=== PATIENT | female | born 2000 | race Caucasian/White ===

== ENCOUNTER 2019-12-15 17:52 | Emergency (ER) | payer OTHER ==
[~2019-12-15] VITALS: Ht 170.2 cm; Wt 74.0 kg
[2019-12-15 19:24] LABS: APPEARANCE, URINE CLEAR (CLEAR); BACTERIA, URINE AUTO NEGATIVE (NEGATIVE); BILIRUBIN, URINE AUTO NEGATIVE (NEGATIVE); BLOOD, URINE BLOOD NEGATIVE (NEGATIVE); COLOR, URINE YELLOW (YELLOW); GLUCOSE, URINE (UA) AUTO NEGATIVE (NEGATIVE); KETONE, URINE AUTO NEGATIVE (NEGATIVE); LEUKOCYTE ESTERASE, URINE AUTO NEGATIVE (NEGATIVE); MUCUS, URINE SMALL (NEGATIVE); NITRITE, URINE AUTO NEGATIVE (NEGATIVE); PROTEIN, URINE AUTO NEGATIVE (NEGATIVE); RBC, URINE AUTO 2 /HPF (0-3); SPECIFIC GRAVITY URINE AUTO 1.029 (1.002-1.035); SQUAMOUS EPITHELIAL CELL UR AU 2 /HPF (0-6); UROBILINOGEN, URINE AUTO 0.2 mg/dL (0.0-2.0); WBC, URINE AUTO 0 /HPF (0-3)
--- NOTE | 2019-12-15 19:31 | REPVR ---
PROCEDURE INFORMATION: Exam: US First Trimester, Transabdominal and US , Transvaginal Exam date and time: 12/15/2019 7:00 PM Age: 19 years old Clinical indication: complicated by abdominal or pelvic pain; Lower; First trimester; Gestational age or lmp: 9 weeks 1 day; ; Additional info: Cramps, light abd pain reports no vaginal bleeding TECHNIQUE: Imaging protocol: Real-time transabdominal obstetrical ultrasound of the maternal pelvis and a first trimester , less than 14 weeks 0 days, with image documentation. Transvaginal imaging was used for better evaluation of the fetus and adnexa. COMPARISON: No relevant prior studies available. FINDINGS: Gestation: Thickened endometrial echo complex measuring up to 13 mm with a small fluid collection in the fundus which may represent a small gestational sac with an average sac diameter of 2.9 mm. Embryonic/ heart rate: Not applicable BIOMETRY: Gestational age (AUA): 9 weeks 1 day based on LMP of 10/12/2019 versus approximately 4 weeks 5 days based on sac size measurement. MATERNAL: Uterus: Unremarkable. Cervix: Unremarkable. Right adnexa: Unremarkable. Left adnexa: Unremarkable. Intraperitoneal space: Trace fluid in the cul-de-sac. IMPRESSION: Possible small gestational sac in the uterine fundus. Follow-up evaluation recommended to document the presence of a pole and cardiac activity and to exclude ectopic or early failure depending upon clinical status. Correlation with beta HCG levels suggested as well. Electronically signed by: Jeffrey Paige On 12/15/2019 19:30:31 PM
[2019-12-15] MEDS ORDERED: LIDOCAINE 5% (LIDODERM) PATCH TD ONE (19:45)
[2019-12-15] MEDS ORDERED: ACETAMINOPHEN 500 MG TAB PO ONE (19:45)
[2019-12-15 19:52] LABS: BASO % 0.4 % (0.0-1.0); EOS # 0.1 10^3/uL (0.0-0.5); EOS % 0.6 % (0.0-3.0); HEMATOCRIT 40.2 % (36.0-47.0); HEMOGLOBIN 13.7 g/dl (12.0-15.5); LYMPH # 3.5 10^3/uL (1.5-5.0); LYMPH % 36.3 % (24.0-44.0); MEAN CORPUSCULAR HGB CONC 34.1 g/dl (32.0-36.5); MONO # 0.9 10^3/uL (0.0-0.8); MONO % 8.9 % (0.0-5.0); NEUTROPHILS # 5.1 10^3/uL (1.5-8.5); NEUTROPHILS % 53.5 % (36.0-66.0); PLATELET COUNT, AUTOMATED 360 10^3/uL (150-450); RED BLOOD COUNT 4.42 10^6/uL (4.00-5.40); WHITE BLOOD COUNT 9.6 10^3/uL (4.0-10.0)
[2019-12-15 20:55] VITALS: BP 111/54
[2019-12-16] MEDS ORDERED: **NOTE PATIENT COMMENT** MISC XX ONE (08:00)
== END 2019-12-15 20:58 | disposition home or self-care (01) ==
LOC: M ED 17:52
DX: O99.89 Other specified diseases and conditions complicating pregnancy, childbirth and the puerperium (principal); M54.5 Low back pain; O26.891 Other specified pregnancy related conditions, first trimester; R51 Headache; O99.331 Smoking (tobacco) complicating pregnancy, first trimester; Z3A.09 9 weeks gestation of pregnancy

== ENCOUNTER 2019-12-22 13:32 | Emergency (ER) | payer OTHER ==
[~2019-12-22] VITALS: Ht 167.6 cm; Wt 74.1 kg
[2019-12-22] MEDS ORDERED: PRENATAL VIT (13:51)
[2019-12-22 15:47] LABS: HEMATOCRIT 41.3 % (36.0-47.0); HEMOGLOBIN 13.9 g/dl (12.0-15.5); MEAN CORPUSCULAR HGB CONC 33.7 g/dl (32.0-36.5); PLATELET COUNT, AUTOMATED 333 10^3/uL (150-450); RED BLOOD COUNT 4.49 10^6/uL (4.00-5.40); WHITE BLOOD COUNT 9.1 10^3/uL (4.0-10.0)
[2019-12-22 16:42] LABS: BLOOD UREA NITROGEN 9 MG/DL (7-18); CALCIUM LEVEL 8.9 MG/DL (8.5-10.1); CARBON DIOXIDE LEVEL 28 MEQ/L (21-32); CHLORIDE LEVEL 108 MEQ/L (98-107); CREATININE FOR GFR 0.72 MG/DL (0.55-1.30); GLUCOSE, FASTING 74 MG/DL (70-100); HCG, SERUM QUANTITATIVE 19724 MIU/ML; SODIUM LEVEL 138 MEQ/L (136-145)
--- NOTE | 2019-12-22 18:12 | REPVR ---
PROCEDURE INFORMATION: Exam: US First Trimester, Transabdominal Exam date and time: 12/22/2019 5:25 PM Age: 19 years old Clinical indication: Lmp or gestational age (in weeks): 9; Other: Threatened ab; TECHNIQUE: Imaging protocol: Real-time transabdominal obstetrical ultrasound of the maternal pelvis and a first trimester , less than 14 weeks 0 days, with image documentation. COMPARISON: 1ST TRIMESTER US 12/15/2019 6:36 PM FINDINGS: Gestation: An intrauterine gestational sac can be seen on both the sagittal scan and the transverse scan. There is a yolk sac identified within the gestational sac. There is decidual reaction surrounding the intrauterine gestational sac. The gestational sac would be consistent 6 weeks 0 days. There is a small echogenic focus but no cardiac activity. This echogenic area could represent a pole but not well-defined. Considerations would include incomplete AB and demise at 6 weeks 0 days. A follow-up scan should be considered to determine cardiac activity develops within a pole. Previous ultrasound of 12/15/2019 demonstrated tiny hypoechoic area in the endometrium measuring 3 mm. Uterus: The uterus measures 7.5 cm in length by 4 cm in AP dimension by 4.6 cm in transverse dimension. Cervix: Unremarkable. Right adnexa: There is vascular flow of the right ovary with no evidence of torsion. The right ovary measures 2.7 cm in length by 1.6 cm in thickness and there are several small follicular type cysts. There is vascular flow of the left ovary with no evidence of torsion. The left ovary measures 3 cm in length by 2.4 cm in thickness. There are varices along the margins of the uterus. Intraperitoneal space: There is a small amount of free fluid within the lower cul-de-sac. Urinary bladder: There is a small amount of urine in the urinary bladder. IMPRESSION: 1. Normal appearing ovaries. 2. Intrauterine gestational sac which is increased in size since the previous ultrasound and approximately 6 weeks 0 days based on gestational sac measurements. There is a yolk sac identified. Small echogenic area demonstrates no cardiac activity. Considerations include incomplete , demise at 6 weeks. A follow-up scan might be considered to determine if there is development of a well-formed pole and cardiac activity. Electronically signed by: Gil Marshall On 12/22/2019 18:12:21 PM
[2019-12-22] MEDS ORDERED: ONDA-83 PO (18:20)
[2019-12-22 18:33] VITALS: BP 121/69
--- NOTE | 2019-12-30 09:39 | ECGEPIP ---
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
== END 2019-12-22 18:37 | disposition home or self-care (01) ==
LOC: M ED 13:32
DX: O26.51 Maternal hypotension syndrome, first trimester (principal); O20.0 Threatened abortion; Z3A.09 9 weeks gestation of pregnancy; Z79.899 Other long term (current) drug therapy

== ENCOUNTER 2019-12-28 10:37 | Day surgery (SDC) | payer OTHER ==
[~2019-12-28] VITALS: Ht 167.6 cm; Wt 73.0 kg
[~2019-12-28 10:37] MED LIST: BUPIVACAINE/EPIN 0.25% 30 ML VIAL As Ordered ONE; ONDA-83 PO; PRENATAL VIT; SILVER NITRATE APPLICATOR As Ordered ONE
[2019-12-28] MEDS ORDERED: ceFAZolin 1GM VIAL (J0690 PER 500MG) As Ordered ONE (11:05)
[2019-12-28 11:13] LABS: HEMATOCRIT 38.2 % (36.0-47.0); HEMOGLOBIN 13.4 g/dl (12.0-15.5); MEAN CORPUSCULAR HEMOGLOBIN 31.5 pg (27.0-33.0); MEAN CORPUSCULAR HGB CONC 35.1 g/dl (32.0-36.5); MEAN CORPUSCULAR VOLUME 89.9 fl (80.0-96.0); PLATELET COUNT, AUTOMATED 375 10^3/uL (150-450); RED BLOOD COUNT 4.25 10^6/uL (4.00-5.40); WHITE BLOOD COUNT 10.3 10^3/uL (4.0-10.0)
[2019-12-28 11:25] LABS: INR 1.09; PROTHROMBIN TIME 14.4 SECONDS (11.8-14.0)
[2019-12-28] MEDS ORDERED: MIDAZOLAM INJ 2MG/2ML VIAL (J2250 PER 1MG) As Ordered ONE (11:56)
[2019-12-28] MEDS ORDERED: dexameTHASONE 4 MG/ML 1ML VIAL (J1100 PER 1MG) As Ordered ONE (11:56)
[2019-12-28] MEDS ORDERED: propofoL 200 MG/20 ML VIAL As Ordered ONE (11:56)
[2019-12-28] MEDS ORDERED: fentaNYL 100 MCG/2 ML INJECTION (J3010) As Ordered ONE (11:56)
[2019-12-28] MEDS ORDERED: ACETAMINOPHEN 1000MG 100ML IV BTL (OFIRMEV) (J0131 PER 10MG) As Ordered ONE (11:56)
[2019-12-28] MEDS ORDERED: LIDOCAINE 2% 100MG/5ML SDV (FOR ANES.) As Ordered ONE (11:56)
[2019-12-28] MEDS ORDERED: ONDANSETRON 4MG/2ML VIAL As Ordered ONE (12:04)
[2019-12-28] MEDS ORDERED: OXYTOCIN INJ 10 UNITS/ML VIAL (J2590) As Ordered ONE (12:11)
[2019-12-28] MEDS ORDERED: ONDANSETRON 4MG/2ML VIAL IV PRN ×2 (12:45→13:00)
[2019-12-28] MEDS ORDERED: LR 1,000 ML IV SCH ×2 (12:45→13:00)
[2019-12-28] MEDS ORDERED: PERCOCET 5MG/325MG TAB PO PRN (12:45)
[2019-12-28] MEDS ORDERED: oxyCODONE 5MG TAB PO PRN (13:00)
[2019-12-28] MEDS ORDERED: fentaNYL 100 MCG/2 ML INJECTION (J3010) IV PRN (13:00)
[2019-12-28 14:00] VITALS: BP 129/57
--- NOTE | 2019-12-28 15:52 | ROOPDOC ---
[facility] Report Of Operation Report of Operation DATE OF PROCEDURE: 12/28/19 PREPROCEDURE DIAGNOSES: Missed at 6wks. POSTPROCEDURE DIAGNOSES: Missed at 6wks. PROCEDURE: Suction dilation and Currett[place]. SURGEON: Jeanna Amaral MD RESEARCH DEVELOPMENT DIRECTOR: None ANESTHESIA: MAC. ESTIMATED BLOOD LOSS: Approximately 100 mL. IV Fluids: 700mL LR Urine Output: Not Recorded COMPLICATIONS: None. REMARKS: Anteverted normal size uterus. Small amount of POC looking inside ut erus. Minimal bleeding. DESCRIPTION OF PROCEDURE: Patient was brought back to the operating room and placed under anesthesia. Then she was placed in the dorsolithotomy position and draped and prepped in the usual sterile technique. Exam was performed with the above findings. Time out performed. Mesa speculum placed. Single tooth tenaculum placed on the anterior lip of the cervix and cervix was dilated easily without difficulty to a curved 17Pratt dilator. The suction machine was assembled with a size 7 currette and adequate suction confirmed. Suction was placed intrauterine without difficulty and suction performed until gritty sensation throughout all quadrants. When suction was removed there was minimal bleeding. Instruments were removed and tenaculum hemostasis via pressure from sponge stick. Lap, instrument count was correct x2. Patient was in stable condition to the recovery room. Jeanna Amaral MD Dec 28, 2019 15:52
== END 2019-12-28 14:05 | disposition home or self-care (01) ==
LOC: M SDC 10:37
PROVIDERS: ATTEND Obstetrics & Gynecology
DX: O02.1 Missed abortion (principal)
CPT/HCPCS: 36415; 59820; 84702; 85027; 85610; 86850; 86900; 86901; 88305; J0131; J1100; J2250; J2405; J2590; J3010; U0002

== ENCOUNTER 2020-02-13 14:08 | Emergency (ER) | payer OTHER ==
[~2020-02-13] VITALS: Ht 167.6 cm; Wt 76.5 kg
[~2020-02-13 14:08] MED LIST changes: -BUPIVACAINE/EPIN 0.25% 30 ML VIAL As Ordered ONE; -SILVER NITRATE APPLICATOR As Ordered ONE
[2020-02-13 15:06] LABS: HEMATOCRIT 40.1 % (36.0-47.0); HEMOGLOBIN 13.6 g/dl (12.0-15.5); MEAN CORPUSCULAR HEMOGLOBIN 30.9 pg (27.0-33.0); MEAN CORPUSCULAR HGB CONC 33.9 g/dl (32.0-36.5); MEAN CORPUSCULAR VOLUME 91.1 fl (80.0-96.0); PLATELET COUNT, AUTOMATED 375 10^3/uL (150-450); WHITE BLOOD COUNT 10.3 10^3/uL (4.0-10.0)
[2020-02-13 15:23] LABS: HCG, SERUM QUALITATIVE POSITIVE (NEGATIVE)
[2020-02-13] MEDS ORDERED: cefTRIAXone SOD 250MG VIAL (J0696 PER 250MG) IM ONE (16:15)
[2020-02-13] MEDS ORDERED: LIDOCAINE 1% SDV 5ML VIAL DILUENT ONE (16:15)
[2020-02-13] MEDS ORDERED: AZITHROMYCIN 250MG TABLET PO ONE (16:15)
[2020-02-13 16:35] VITALS: BP 111/66
[2020-02-13 16:50] LABS: CHLAMYDIA DNA AMPLIFICATION NEGATIVE (NEGATIVE); GC DNA AMPLIFICATION NEGATIVE (NEGATIVE)
== END 2020-02-13 16:37 | disposition home or self-care (01) ==
LOC: M ED 14:08
DX: O20.0 Threatened abortion (principal); N89.8 Other specified noninflammatory disorders of vagina; O26.899 Other specified pregnancy related conditions, unspecified trimester; R10.2 Pelvic and perineal pain; Z3A.00 Weeks of gestation of pregnancy not specified; Z79.899 Other long term (current) drug therapy
CPT/HCPCS: 81001; 84702; 84703; 85027; 86901; 87210; 87661; 96372; 99283; J0696

== ENCOUNTER 2020-05-15 09:23 | Emergency (ER) | payer OTHER ==
[~2020-05-15] VITALS: Ht 167.6 cm; Wt 77.2 kg
--- OUTSIDE RECORDS SUMMARY | 2020-05-15 09:34 | CCD ---
Author Author [facility] Address Unknown Phone Unavailable Support Name Relationship Address Phone JELLY MARINELLI Next Of Kin [address] [place], [place] [id number] DOOR DASH Next Of Kin [address] [place] [address] UE Next Of Kin Unknown Unavailable ROXY MARINELLI Next Of Kin [address] [place], [place] [id number] Re-disclosure Warning The records that you are about to access may contain information from federally-assisted alcohol or drug abuse programs. If such information is present, then the following federally mandated warning applies: This information has been disclosed to you from records protected by federal confidentiality rules (42 CFR part 2). The federal rules prohibit you from making any further disclosure of this information unless further disclosure is expressly permitted by the written consent of the person to whom it pertains or as otherwise permitted by 42 CFR part 2. A general authorization for the release of medical or other information is NOT sufficient for this purpose. The Federal rules restrict any use of the information to criminally investigate or prosecute any alcohol or drug abuse patient.The records that you are about to access may contain highly sensitive health information, the redisclosure of which is protected by Article 27-F of the [facility] Public Health law. If you continue you may have access to information: Regarding HIV / AIDS; Provided by facilities licensed or operated by the [facility] Office of Mental Health; or Provided by the [facility] Office for People With Developmental Disabilities. If such information is present, then the following [facility] mandated warning applies: This information has been disclosed to you from confidential records which are protected by state law. State law prohibits you from making any further disclosure of this information without the specific written consent of the person to whom it pertains, or as otherwise permitted by law. Any unauthorized further disclosure in violation of state law may result in a fine or halfway sentence or both. A general authorization for the release of medical or other information is NOT sufficient authorization for further disc losure. Insurance Providers Payer name Policy type / Coverage type Policy ID Covered constitution party ID Covered constitution party's relationship to millan Policy Millan Plan Information [facility] [id number] P [id number] [facility] [id number] [facility] [id number] [facility] [id number] [facility] [id number] [facility] [id number] [facility] [id number] [facility] [id number]
[2020-05-15] MEDS ORDERED: CYCLOBENZAPRINE 10MG TABLET PO ONE (10:00)
[2020-05-15] MEDS ORDERED: KETOROLAC TROMETHAMINE 10 MG TAB PO ONE (10:00)
--- OUTSIDE RECORDS SUMMARY | 2020-05-15 10:39 | CCD ---
Author Author [facility] Address Unknown Phone Unavailable Support Name Relationship Address Phone JELLY MARINELLI Next Of Kin [address] [place], [place] [id number] DOOR DASH Next Of Kin [address] [place] [address] UE Next Of Kin Unknown Unavailable ROXY MARINELLI Next Of Kin [address] [place], [place] [phone] Re-disclosure Warning The records that you are [...] is protected by Article 27-F of the [facility] Public Health law. If you continue you may have access to information: Regarding HIV / AIDS; Provided by facilities licensed or operated by the [facility] Office of Mental Health; or Provided by the [facility] Office for People With Developmental Disabilities. If such information is present, then the following [facility] mandated warning applies: This information has been [...] law may result in a fine or fdc sentence or both. A general authorization for the release of medical or other information is NOT sufficient authorization for further disc losure. Insurance Providers Payer name Policy type / Coverage type Policy ID Covered libertarian ID Covered libertarian's relationship to millan Policy Millan Plan Information [facility] [id number] P [id number] [facility] [id number] [facility] [id number] [facility] [id number] [facility] [id number] [facility] [id number] [facility] [id number] [facility] [id number]
[2020-05-15] MEDS ORDERED: CYCL5TAB PO (11:05)
[2020-05-15] MEDS ORDERED: KETO10TAB PO (11:05)
[2020-05-15 11:14] VITALS: BP 117/73
== END 2020-05-15 11:17 | disposition home or self-care (01) ==
LOC: M ED 09:23
DX: M62.838 Other muscle spasm (principal)

== ENCOUNTER → 2020-06-29 | Outpatient (REF) | payer OTHER ==
[~2020-06-29] MED LIST changes: +CYCL5TAB PO; +KETO10TAB PO
[2020-06-29 14:01] LABS: HEMATOCRIT 40.8 % (36.0-47.0); HEMOGLOBIN 13.9 g/dl (12.0-15.5); MEAN CORPUSCULAR HEMOGLOBIN 31.6 pg (27.0-33.0); MEAN CORPUSCULAR HGB CONC 34.1 g/dl (32.0-36.5); MEAN CORPUSCULAR VOLUME 92.7 fl (80.0-96.0); PLATELET COUNT, AUTOMATED 324 10^3/uL (150-450); WHITE BLOOD COUNT 8.8 10^3/uL (4.0-10.0)
[2020-06-29 15:15] LABS: HEPATITIS C VIRUS ABY INDEX < 0.0 INDEX (<0.8); HIV 1&2 SCREEN CENTAUR NEGATIVE (NEGATIVE)
== END ==
LOC: M PLALAB 10:48
PROVIDERS: ATTEND Obstetrics & Gynecology
DX: Z34.01 Encounter for supervision of normal first pregnancy, first trimester (principal); Z36.89 Encounter for other specified antenatal screening
CPT/HCPCS: 36415; 85027; 86762; 86780; 86803; 86850; 86900; 86901; 87086; 87340; 87389; 87490; 87590; G0463

== ENCOUNTER 2020-10-22 20:23 | Inpatient (IN) | payer OTHER ==
[~2020-10-22] VITALS: Ht 167.6 cm; Wt 68.7 kg
[2020-10-22 20:42] VITALS: BP 145/63
[2020-10-22] MEDS ORDERED: LR 1,000 ML IV ONE (21:05)
--- NOTE | 2020-10-22 21:14 | IPNPDOC ---
Text Note Date of Service The patient was seen on 10/22/20. NOTE Subjective: Nikia is a 20-year-old female who is a at 23 weeks gestation with an DINORAH of 02/18/21. She initiated care in her first trimester of with [facility]. She was seen for only 2 visits with her last visit being in July. She reports she was back home for the last 3 months due to a family emergency. She states she had some care back home. Nikia states she had symptoms of a UTI on Thursday and took Azo and symptoms got better. Today her pain returned but worse. Reports it to be a 7/10 currently. Pain is constant and not relieved with a shower or Tylenol, which she took her last dose at 1700. Low back pain that wraps down and around her sides. She doesn't believe she has had a fever. She reports active movement. She denies contractions but reports some cramping but not sure if it is from her back. She denies leaking of fluid or vaginal bleeding. Objective: FHR: 160, moderate variability, positive accelerations, no decelerations. Appropriate for gestation. Darling: no contractions General: She is alert but appears to be uncomfortable. She is grimacing and moving in the bed. Respiratory: respiratory rate increased, no use of accessory muscles. Abdomen: gravid, fundus 2 finger breaths above umbilicus, not tender with palpation Musculoskeletal:+CVA tenderness bilaterally VS, labs and ultrasound: see below At 0130 patient had a fever of 101.2 Assessment: IUP at 23 weeks gestation; pyelonephritis, fever Plan: -Urine clean catch for culture and urinalysis obtained -Start IV -CBC ordered stat -Bolus 1 liter of LR then run at 125 cc/hr -Renal sono ordered -IV Morphine 4 mg ordered -Percocet ordered -FHR every 4 hours -Rochephin IV ordered once every 24 hours due to WBC of 16. -Dr. Castro aware of patient being in department he agrees with plan of care. -Continue to monitor -Tylenol for fever Pain improved with IV fluids, Rocephin and Morphine VS,Fishbone, I+O VS, Fishbone, I+O Vital Signs Label Value Date Time Patient Temperature 98.4 degrees F 10/22/202041 Temperature Source Temporal 10/22/202041 Pulse 111 10/22/202041 Respiratory Rate 18 bpm 10/22/202041 Blood Pressure Assessment 145/63 (90) 10/22/202041 Source Automatic Cuff (NIBP) Bedside Pulse Oximetry 98 % 10/22/202041 Item Value Date Time White Blood Count 16.1 10^3/uL H 10/22/202107 Red Blood Count 3.58 10^6/uL L 10/22/202107 Hemoglobin 11.6 g/dl L 10/22/202107 Hematocrit 33.5 % L 10/22/202107 Mean Corpuscular Volume 93.6 fl 10/22/202107 Mean Corpuscular Hemoglobin 32.4 pg 10/22/202107 Mean Corpuscular Hemoglobin Concent 34.6 g/dl 10/22/202107 Red Cell Distribution Width 12.7 % 10/22/202107 Platelet Count 294 10^3/uL 10/22/202107 Item Value Date Time Urine Color YELLOW 10/22/202119 Urine Appearance CLOUDY H 10/22/202119 Urine pH 7.0 UNITS 10/22/202119 Urine Specific [place] 1.009 10/22/202119 Urine Protein NEGATIVE mg/dL 10/22/202119 Urine Glucose (Auto)(UA) NEGATIVE mg/dL 10/22/202119 Urine Ketones (Auto) NEGATIVE mg/dL 10/22/202119 Urine Blood NEGATIVE 10/22/202119 Urine Nitrite NEGATIVE 10/22/202119 Urine Bilirubin NEGATIVE 10/22/202119 Urine Urobilinogen 0.2 mg/dL 10/22/202119 Urine Leukocyte Esterase (Auto) 3+ H 10/22/202119 Urine WBC (Auto) 109 /HPF H 10/22/202119 Urine RBC (Auto) 6 /HPF H 10/22/202119 Urine Hyaline Casts (Auto) 0 /LPF 10/22/202119 Urine Bacteria (Auto) 1+ H 10/22/202119 Urine Squamous Epithelial Cells 1 /HPF 10/22/202119 NAME: HOWARD MARINELLI DATE OF : 2000 BUSINESS NUMBER: [id number] AGE: 20 SEX: F REPORT #: [id number] ROOM: [facility] TECHNOLOGIST: DGUNN DOCTOR: NINA DOAN CNM Ordered for Date&Time: 10/22/202132 cc: [~ rep ct ivnm] Service Date&Time: 10/22/202301 EXAMINATION REQUESTED: RENAL US REASON FOR PATIENT VISIT: ABD/BACK PAIN REASON FOR EXAMINATION: severe bilateral back/flank pain PROCEDURE INFORMATION: Exam: US Retroperitoneal Limited, Kidneys Exam date and time: 10/22/2020 11:02 PM Age: 20 years old Clinical indication: Abdominal pain; Flank; Bilateral; ; Additional info: Severe bilateral back/flank pain TECHNIQUE: Imaging protocol: Real-time ultrasound of the retroperitoneum with image documentation. Examination was focused on the kidneys. COMPARISON: 1ST TRIMESTER US 12/22/2019 5:04 PM FINDINGS: Right kidney: The right kidney and measures 10.7 cm in length. There is no renal cortical thinning. The renal cortical echogenicity is within normal limits. No renal lesion is seen. There is mild right hydronephrosis. No obvious stones are seen in the renal collecting system. The resistive index in the right kidney is within normal limits and measures 0.62. Left kidney: The left kidney is normal in appearance and measures 10.8 cm in length. There is no renal cortical thinning. The renal cortical echogenicity is within normal limits. No renal lesion is seen. There is no hydronephrosis. No obvious stones are seen in the renal collecting system. The resistive index in the left kidney is within normal limits and measures 0.59. Bladder: The urinary bladder was not distended for optimal evaluation. Uterus: There is a single live intrauterine in cephalic presentation with a heart rate of 160 bpm. IMPRESSION: Mild right hydronephrosis. Electronically signed by: Deep Mosley On 10/23/2020 01:12:02 AM NINA DOAN CNM Oct 22, 2020 21:14
[2020-10-22] MEDS ORDERED: ACET325C5 PO ×2 (21:20→21:23)
[2020-10-22] MEDS ORDERED: MORPHINE 4 MG/ML 1ML VIAL/SYRINGE (J2270) IV PRN (21:35)
[2020-10-22 21:41] LABS: HEMATOCRIT 33.5 % (36.0-47.0); HEMOGLOBIN 11.6 g/dl (12.0-15.5); MEAN CORPUSCULAR HEMOGLOBIN 32.4 pg (27.0-33.0); MEAN CORPUSCULAR HGB CONC 34.6 g/dl (32.0-36.5); MEAN CORPUSCULAR VOLUME 93.6 fl (80.0-96.0); PLATELET COUNT, AUTOMATED 294 10^3/uL (150-450); RED BLOOD COUNT 3.58 10^6/uL (4.00-5.40); WHITE BLOOD COUNT 16.1 10^3/uL (4.0-10.0)
[2020-10-22 21:44] LABS: APPEARANCE, URINE CLOUDY (CLEAR); BACTERIA, URINE AUTO 1+ (NEGATIVE); BILIRUBIN, URINE AUTO NEGATIVE (NEGATIVE); BLOOD, URINE BLOOD NEGATIVE (NEGATIVE); COLOR, URINE YELLOW (YELLOW); GLUCOSE, URINE (UA) AUTO NEGATIVE (NEGATIVE); KETONE, URINE AUTO NEGATIVE (NEGATIVE); LEUKOCYTE ESTERASE, URINE AUTO 3+ (NEGATIVE); NITRITE, URINE AUTO NEGATIVE (NEGATIVE); PROTEIN, URINE AUTO NEGATIVE (NEGATIVE); RBC, URINE AUTO 6 /HPF (0-3); SPECIFIC GRAVITY URINE AUTO 1.009 (1.002-1.035); SQUAMOUS EPITHELIAL CELL UR AU 1 /HPF (0-6); UROBILINOGEN, URINE AUTO 0.2 mg/dL (0.0-2.0); WBC, URINE AUTO 109 /HPF (0-3)
[2020-10-22 21:51] VITALS: BP 116/64
[2020-10-22] MEDS: cefTRIAXone SOD 1 GM in D5W MINI-BAG PLUS 50 ML IV SCH (22:08)
[2020-10-22 23:07] VITALS: BP 107/55
[2020-10-22 23:56] VITALS: BP 94/50
[2020-10-22] MEDS: LR 1,000 ML IV SCH (23:57)
[2020-10-23] VITALS (7 sets, daily range): BP systolic 83–129; BP diastolic 43–80
--- NOTE | 2020-10-23 01:12 | REPVR ---
PROCEDURE INFORMATION: Exam: US Retroperitoneal Limited, Kidneys Exam date and time: 10/22/2020 11:02 PM Age: 20 years old Clinical indication: Abdominal pain; Flank; Bilateral; ; Additional info: Severe bilateral back/flank pain TECHNIQUE: Imaging protocol: Real-time ultrasound of the retroperitoneum with image documentation. Examination was focused on the kidneys. COMPARISON: 1ST TRIMESTER US 12/22/2019 5:04 PM FINDINGS: Right kidney: The right kidney and measures 10.7 cm in length. There is no renal cortical thinning. The renal cortical echogenicity is within normal limits. No renal lesion is seen. There is mild right hydronephrosis. No obvious stones are seen in the renal collecting system. The resistive index in the right kidney is within normal limits and measures 0.62. Left kidney: The left kidney is normal in appearance and measures 10.8 cm in length. There is no renal cortical thinning. The renal cortical echogenicity is within normal limits. No renal lesion is seen. There is no hydronephrosis. No obvious stones are seen in the renal collecting system. The resistive index in the left kidney is within normal limits and measures 0.59. Bladder: The urinary bladder was not distended for optimal evaluation. Uterus: There is a single live intrauterine in cephalic presentation with a heart rate of 160 bpm. IMPRESSION: Mild right hydronephrosis. Electronically signed by: Deep Mosley On 10/23/2020 01:12:02 AM
[2020-10-23] MEDS ORDERED: ACETAMINOPHEN 500 MG TAB PO PRN (01:35)
--- NOTE | 2020-10-23 01:45 | IPNPDOC ---
Text Note Date of Service The patient was seen on 10/23/20. NOTE Patient was requesting to go home because her has to work in the [employer]. Reviewed diagnosis and importance of staying to being monitored. Patient wanted to know if she could go home and come back for IV antibiotics. Reviewed that this is not an option. Patient currently has a fever. Reviewed complications of diagnosis including but not limited to: maternal , p rolonged fever affecting fetus, , ARDS, sepsis, pain, complications including CP. Reviewed with patient that I will not discharge her to home she would have to leave against medical advise. Patient wanted to call her to discuss. The potential complications were again reiterated to patient and need to be monitored while she is here. VS,Rosalie, I+O VS, Rosalie, I+O Laboratory Tests 10/22/20 21:08 Vital Signs Date Time Temp Pulse Resp B/P (MAP) Pulse Ox O2 Delivery O2 Flow Rate FiO2 10/22/20 23:56 97.9 93 94/50 (65) 10/22/20 23:07 16 10/22/20 21:50 Room Air 10/22/20 20:42 98 I&O- Last 24 Hours up to 6 AM 10/23/20 06:00 Intake Total 50 ml Balance 50 ml NINA DOAN CNM Oct 23, 2020 01:45
[2020-10-23] MEDS: LR 1,000 ML IV SCH ×3 (05:35→21:05)
[2020-10-23] MEDS: PERCOCET 5MG/325MG TAB PO PRN ×3 (08:13→21:05)
[2020-10-23] MEDS: cefTRIAXone SOD 1 GM in D5W MINI-BAG PLUS 50 ML IV SCH (22:21)
[2020-10-24 02:12] VITALS: BP 86/40
--- NOTE | 2020-10-24 04:46 | IPNPDOC ---
Text Note Date of Service The patient was seen on 10/24/20. NOTE S: Sleeping comfortably at present. Still gets back pain intermittently. O: AVSS NAD Abd: NT, gravid FHT:+ + right CVA tenderness, mild A/P 20 yo at 23 3/7 weeks with pyelonephritis Continue Ceftriaxone Labs for today Urine culture pending overall improved in both pain and fever curve VS,Fishbone, I+O VS, Fishbone, I+O Vital Signs Date Time Temp Pulse Resp B/P (MAP) Pulse Ox O2 Delivery O2 Flow Rate FiO2 10/24/20 02:12 98.1 80 16 86/40 (55) 10/23/20 22:13 98 Room Air I&O- Last 24 Hours up to 6 AM 10/24/20 06:00 Intake Total 2500 ml Output Total 800 ml Balance 1700 ml COLLIN DURAN MD Oct 24, 2020 04:46
[2020-10-24 06:12] VITALS: BP 92/43
[2020-10-24] MEDS: LR 1,000 ML IV SCH (06:24)
[2020-10-24 07:14] LABS: BASO % 0.2 % (0.0-1.0); EOS # 0.1 10^3/uL (0.0-0.5); EOS % 0.7 % (0.0-3.0); LYMPH # 2.8 10^3/uL (1.5-5.0); MEAN CORPUSCULAR HEMOGLOBIN 31.9 pg (27.0-33.0); MEAN CORPUSCULAR HGB CONC 33.6 g/dl (32.0-36.5); MEAN CORPUSCULAR VOLUME 94.9 fl (80.0-96.0); MONO # 1.6 10^3/uL (0.0-0.8); MONO % 13.3 % (2.0-8.0); NEUTROPHILS # 7.6 10^3/uL (1.5-8.5); NEUTROPHILS % 62.4 % (36.0-66.0); PLATELET COUNT, AUTOMATED 245 10^3/uL (150-450); RED BLOOD COUNT 2.95 10^6/uL (4.00-5.40); WHITE BLOOD COUNT 12.2 10^3/uL (4.0-10.0)
[2020-10-24 07:36] LABS: BLOOD UREA NITROGEN 4 MG/DL (7-18); CALCIUM LEVEL 7.6 MG/DL (8.5-10.1); CARBON DIOXIDE LEVEL 26 MEQ/L (21-32); CHLORIDE LEVEL 109 MEQ/L (98-107); CREATININE FOR GFR 0.42 MG/DL (0.55-1.30); GLOMERULAR FILTRATION RATE > 60.0 (>60); GLUCOSE, FASTING 73 MG/DL (70-100); POTASSIUM SERUM 3.7 MEQ/L (3.5-5.1); SODIUM LEVEL 139 MEQ/L (136-145)
[2020-10-24 07:43] LABS: HEMOGLOBIN 9.4 g/dl (12.0-15.5)
[2020-10-24 10:00] VITALS: BP 97/52
[2020-10-24 14:00] VITALS: BP 100/55
--- NOTE | 2020-10-25 15:40 | DSES ---
DISCHARGE SUMMARY DATE OF ADMISSION: 10/22/2020 DATE OF DISCHARGE: 10/24/2020 HISTORY OF PRESENT ILLNESS: Brad is a 20-year-old female 4, para 1-0-2-1, who presented to labor and delivery at 23 plus weeks gestation with an EDC of 02/18/2021. She had complained of symptoms of a urinary tract infection about three or four days prior to her presentation, when she took an [id number] remedy and her symptoms got better. On 10/22, her pain had returned, but much worse. She was subsequently diagnosed with pyelonephritis. Her admission CBC with a white count of 16.1. The white count was repeated today and her white count is 12.2. She has received two doses of Rocephin and has been afebrile for greater than 24 hours. She is tolerating p.o. fluids and a regular diet. She denies any current pain at this time and has not required any antipyretics for her temperature. heart rate has been appropriate for gestational age by Doppler. She has had no contractions. No vaginal bleeding. No leakage of fluid. The fetus has been active. DISCHARGE PLAN: Discharge the patient to home. She is going to continue Keflex 500 mg p.o. q. 6 hours x10 days. She is to have a follow-up appointment in approximately two weeks at [facility]. Of note, she did initiate her care at [facility], [place] of state, and has since returned recently and will be reinitiating her care in the office. I did review risks, benefits, and alternatives with the patient. Her questions have been answered. She does desire discharge home today. I did review signs and symptoms of labor, movement, danger signs to report, as well as access to care. Edited: syed 10/25/2020 1558 MTDD
== END 2020-10-24 16:25 | disposition home or self-care (01) | DRG 690 ==
LOC: M LDO 20:23 → M OBS 10-23 02:42 → M LDO 10-24 05:49 → M OBS 10-24 05:50
PROVIDERS: ADMIT Advanced Practice Midwife; ATTEND Advanced Practice Midwife
DX: N10 Acute pyelonephritis (principal); R50.9 Fever, unspecified

== ENCOUNTER 2020-11-18 23:05 | Emergency (ER) | payer OTHER ==
[~2020-11-18] VITALS: Ht 167.6 cm; Wt 68.2 kg
[~2020-11-18 23:05] MED LIST changes: +ACET325C5 PO
[2020-11-19 00:16] LABS: HEMATOCRIT 35.1 % (36.0-47.0); HEMOGLOBIN 11.9 g/dl (12.0-15.5); MEAN CORPUSCULAR HEMOGLOBIN 31.6 pg (27.0-33.0); MEAN CORPUSCULAR HGB CONC 33.9 g/dl (32.0-36.5); MEAN CORPUSCULAR VOLUME 93.4 fl (80.0-96.0); PLATELET COUNT, AUTOMATED 296 10^3/uL (150-450); RED BLOOD COUNT 3.76 10^6/uL (4.00-5.40); WHITE BLOOD COUNT 15.8 10^3/uL (4.0-10.0)
[2020-11-19 00:35] LABS: AMPHETAMINES LEVEL URINE NEGATIVE (NEGATIVE); BARBITURATES URINE NEGATIVE (NEGATIVE); BENZODIAZEPINES URINE NEGATIVE (NEGATIVE); CANNABINOIDS URINE NEGATIVE (NEGATIVE); COCAINE METABOLITE URINE NEGATIVE (NEGATIVE); METHADONE URINE NEGATIVE (NEGATIVE); OPIATES URINE NEGATIVE (NEGATIVE); PHENCYCLIDINE URINE NEGATIVE (NEGATIVE)
[2020-11-19 01:11] LABS: ACETAMINOPHEN LEVEL < 2.0 UG/ML (10.0-30.0); ALBUMIN 3.1 GM/DL (3.2-5.2); ALT/SGPT 12 U/L (12-78); BILIRUBIN,DIRECT < 0.1 MG/DL (0.0-0.2); BILIRUBIN,TOTAL 0.3 MG/DL (0.2-1.0); BLOOD UREA NITROGEN 7 MG/DL (7-18); CALCIUM LEVEL 7.9 MG/DL (8.5-10.1); CARBON DIOXIDE LEVEL 25 MEQ/L (21-32); CHLORIDE LEVEL 108 MEQ/L (98-107); CREATININE FOR GFR 0.55 MG/DL (0.55-1.30); GLOMERULAR FILTRATION RATE > 60.0 (>60); GLUCOSE, FASTING 80 MG/DL (70-100); POTASSIUM SERUM 3.6 MEQ/L (3.5-5.1); SALICYLATE LEVEL < 1.7 MG/DL (5.0-30.0); SODIUM LEVEL 138 MEQ/L (136-145); TOTAL PROTEIN 6.3 GM/DL (6.4-8.2)
[2020-11-19 01:12] LABS: ETHYL ALCOHOL (ETHANOL) < 0.003 % (0.000-0.010)
[2020-11-19] MEDS ORDERED: diphenhydrAMINE 50MG CAP PO ONE (02:00)
[2020-11-19 02:14] VITALS: BP 109/64
== END 2020-11-19 02:17 | disposition home or self-care (01) ==
LOC: M ED 23:05
DX: F32.9 Major depressive disorder, single episode, unspecified (principal); X78.9XXA Intentional self-harm by unspecified sharp object, initial encounter; F41.9 Anxiety disorder, unspecified; Z79.899 Other long term (current) drug therapy

== ENCOUNTER → 2020-11-22 | Outpatient (REF) | payer OTHER ==
[~2020-11-22] MED LIST changes: +PRENTAB9 PO
== END ==
LOC: M SFHCWAGY 16:56
PROVIDERS: ATTEND Advanced Practice Midwife
DX: Z87.59 Personal history of other complications of pregnancy, childbirth and the puerperium (principal)
CPT/HCPCS: 87086; G0463

== ENCOUNTER → 2020-11-26 | Outpatient (CLI) | payer OTHER ==
[~2020-11-26] MED LIST changes: -PRENTAB9 PO
[2020-11-26 14:16] LABS: HEMOGLOBIN 12.1 g/dl (12.0-15.5); MEAN CORPUSCULAR HEMOGLOBIN 31.9 pg (27.0-33.0); MEAN CORPUSCULAR HGB CONC 33.6 g/dl (32.0-36.5); PLATELET COUNT, AUTOMATED 318 10^3/uL (150-450); RED BLOOD COUNT 3.79 10^6/uL (4.00-5.40); WHITE BLOOD COUNT 11.1 10^3/uL (4.0-10.0)
[2020-11-26 14:31] LABS: GLUCOSE CHALLENGE TEST 1 HOUR 93 MG/DL (LESS THAN 140)
[2020-11-26 15:20] LABS: HEPATITIS C VIRUS ABY INDEX 0.1 INDEX (<0.8)
[2020-11-26 15:21] LABS: HIV 1&2 SCREEN CENTAUR NEGATIVE (NEGATIVE)
== END ==
LOC: M PLALAB 09:18
PROVIDERS: ATTEND Advanced Practice Midwife
DX: O99.342 Other mental disorders complicating pregnancy, second trimester (principal); Z3A.00 Weeks of gestation of pregnancy not specified; Z87.59 Personal history of other complications of pregnancy, childbirth and the puerperium

== ENCOUNTER → 2020-12-10 | Outpatient (CLI) | payer OTHER ==
--- NOTE | 2020-12-11 10:35 | REP ---
INDICATION: ANATOMY COMPARISON: None. TECHNIQUE: Transabdominal obstetrical ultrasound with color Doppler evaluation. FINDINGS: Exam is limited due to advanced age. Examination demonstrates a single live intrauterine in cephalic presentation. motion is identified by technologist. Placenta is noted anterior and grade 1 without evidence for placenta previa or abruption. Amniotic fluid volume is normal. Cervix measures 3.5 cm in length and appears closed.. Selected gestational age: 30 weeks 0 days with DINORAH 02/18/2021. Gestational age by current measurements 30 weeks 3 days with DINORAH 02/15/2021. FHR equals 129 beats per minute. JONE: 20.4 cm Estimated weight 1553 grams (49thpercentile). Anatomical assessment demonstrates normal structures including cranium, choroid plexus, cavum, facial features, lungs, four-chamber heart/ventricular outflow tracts, diaphragm, stomach, cord insertion/three-vessel cord, kidneys/bladder, spine, and extremities. IMPRESSION: Single live advanced gestation in cephalic presentation. No obvious abnormalities are identified. Estimated weight is normal. Evaluation of the cerebellum/posterior fossa and cisterna magna limited due to advanced age. <Electronically signed by Alin Clark > 12/11/20 1032
== END ==
LOC: M WHC 10:30
PROVIDERS: ATTEND Advanced Practice Midwife
DX: O99.343 Other mental disorders complicating pregnancy, third trimester (principal); Z3A.30 30 weeks gestation of pregnancy

== ENCOUNTER 2020-12-26 15:24 | Outpatient (CLI) | payer OTHER ==
[~2020-12-26] VITALS: Ht 167.6 cm; Wt 68.2 kg
[2020-12-26 15:44] VITALS: BP 127/67
[2020-12-26] MEDS ORDERED: PRENTAB9 PO (15:46)
[2020-12-26] MEDS ORDERED: HOME MED LIST COMPLETE! XX SCH (15:50)
[2020-12-26 16:38] VITALS: BP 120/68
--- NOTE | 2020-12-26 17:33 | IPN ---
PROGRESS NOTE DATE: 12/26/2020 SUBJECTIVE: Brad is a 20-year-old 4, para 1-0-2-1 and 32-2/7 weeks gestation with an EDC of 02/18/2021 based on first trimester ultrasound. She presents to labor and delivery today with a report of yellow discharge leaking, some pelvic pain, as well as decreased movement. Jeaneth denies vaginal bleeding. She does report that the fetus has started to move since arrival to labor and delivery. Her care was initiated at [facility] in the first trimester. She did go three months without care as she reports that she returned to her home state. She does state that she did have some care there. She returned to the [place] in November. Her care was complicated by pyelonephritis at 23 weeks, borderline personality disorder, anxiety, depression, and HSV-II. OBSTETRIC LABS: Blood type is A+. Antibody screen is negative. Syphilis nonreactive. Gonorrhea and chlamydia negative. Hepatitis B surface antigen negative. Hepatitis C antibody nonreactive. HIV negative. Rubella immune. Urine culture no growth. Gestational diabetic screening normal at 93. GBS is unknown at this time. PAST MEDICAL HISTORY: Borderline personality disorder, anxiety and depression, pyelonephritis during this . PAST SURGICAL HISTORY: D&C in 2019. FAMILY HISTORY: Noncontributory. 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 She is a nonsmoker. Denies alcohol and drug use. She does have a history of chlamydia and HSV-II. ALLERGIES: No known drug allergies. CURRENT MEDICATIONS: vitamin. OBJECTIVE: Vital signs: Temperature 98, pulse 94, respirations 18, blood pressure 127/67. General: She is alert and oriented times three. She does not appear in any discomfort. The heart rate is 130 with moderate variability, positive accelerations, negative decelerations. There is no pattern of regular contractions. Sterile speculum exam: The cervix appears closed. Negative Valsalva, negative pooling, negative Nitrazine, negative fern. Gonorrhea and chlamydia specimen obtained. Sterile vaginal exam: Long, thick and closed. ASSESSMENT: Intrauterine at 32-2/7 weeks, heart rate category 1, not in labor, not ruptured. PLAN: Discharge the patient home. She is to keep her next appointment that she has scheduled. I did review signs and symptoms of labor, movement counts, and danger signs to report and reviewed access to her care provider. She and her 's questions have been answered and they do desire discharge home.
[2020-12-26 18:20] LABS: GC DNA AMPLIFICATION NEGATIVE (NEGATIVE)
== END 2020-12-26 16:59 | disposition home or self-care (01) ==
LOC: M LDO 15:24
PROVIDERS: ATTEND Advanced Practice Midwife
DX: O26.893 Other specified pregnancy related conditions, third trimester (principal); Z3A.32 32 weeks gestation of pregnancy; N89.8 Other specified noninflammatory disorders of vagina; R10.9 Unspecified abdominal pain; O36.8130 Decreased fetal movements, third trimester, not applicable or unspecified; O99.343 Other mental disorders complicating pregnancy, third trimester; F60.3 Borderline personality disorder; F41.9 Anxiety disorder, unspecified; F32.9 Major depressive disorder, single episode, unspecified
CPT/HCPCS: 59025; 87661; G0378; G0463

== ENCOUNTER → 2021-01-21 | Outpatient (REF) | payer OTHER ==
[~2021-01-21] MED LIST changes: +PRENTAB9 PO
== END ==
LOC: M SFHCWAGY 10:12
PROVIDERS: ATTEND Obstetrics & Gynecology
DX: Z34.83 Encounter for supervision of other normal pregnancy, third trimester (principal)

== ENCOUNTER 2021-01-22 01:10 | Outpatient (CLI) | payer OTHER ==
[~2021-01-22] VITALS: Ht 167.6 cm; Wt 71.1 kg
[2021-01-22 01:38] VITALS: BP 110/66
[2021-01-22] MEDS ORDERED: HOME MED LIST COMPLETE! XX SCH ×2 (01:40)
[2021-01-22 02:06] LABS: APPEARANCE, URINE CLEAR (CLEAR); BACTERIA, URINE AUTO NEGATIVE (NEGATIVE); BILIRUBIN, URINE AUTO NEGATIVE (NEGATIVE); BLOOD, URINE BLOOD 1+ (NEGATIVE); COLOR, URINE YELLOW (YELLOW); GLUCOSE, URINE (UA) AUTO NEGATIVE (NEGATIVE); KETONE, URINE AUTO NEGATIVE (NEGATIVE); LEUKOCYTE ESTERASE, URINE AUTO NEGATIVE (NEGATIVE); NITRITE, URINE AUTO NEGATIVE (NEGATIVE); PROTEIN, URINE AUTO NEGATIVE (NEGATIVE); RBC, URINE AUTO 10 /HPF (0-3); SQUAMOUS EPITHELIAL CELL UR AU 0 /HPF (0-6); UROBILINOGEN, URINE AUTO 0.2 mg/dL (0.0-2.0); WBC, URINE AUTO 3 /HPF (0-3)
--- NOTE | 2021-01-22 02:17 | IPNPDOC ---
Text Note Date of Service The patient was seen on 01/22/21. NOTE Brad is a 20-year-old at 36 1/7 with an DINORAH of 02/18/2021 confirmed via first trimester ultrasound. Her is complicated by pyelonephritis at 23 week gestation, borderline personality disorder, anxiety, depression, and HSV2. She presents to labor and delivery triage with concerns of decreased movement this evening and irregular painful uterine contractions. She denies dysuria, vaginal discharge, vaginal bleeding, itching or odor. Since being in department, patient notes active movement. O: Vital Signs and labs-see below. FHR:120, moderate variability, positive accelerations, no decelerations [place]: uterine contractions q3-5 minutes. General: alert and oriented x 3. Does not appear to be in any distress. Respiratory: breathing comfortably on room air, no use of accessory muscles Abdomen: gravid, non-tender to palpation. Cervical exam reveals 2cm/50%/-2, posterior and soft cervix (done by student nurse [facility]). No bloody show. Recheck done and she is 4 cm/50%/-2, posterior, soft, no show. A: IUP at 36 1/7, decreased movement, contractions. P: urinalysis ordered. Betamethasone IM now and again in 24 hours. Will continue to monitor for labor. GBS obtained in the office yesterday per patient. VS,Fishbone, I+O VS, Fishbone, I+O Vital Signs Date Time Temp Pulse Resp B/P (MAP) Pulse Ox O2 Delivery O2 Flow Rate FiO2 01/22/21 01:38 97.3 64 16 110/66 (81) Item Value Date Time Urine Color YELLOW 01/22/21147 Urine Appearance CLEAR 01/22/21147 Urine pH 6.0 UNITS 01/22/21147 Urine Specific [place] 1.010 01/22/21147 Urine Protein NEGATIVE mg/dL 01/22/21147 Urine Ketones (Auto) NEGATIVE mg/dL 01/22/21147 Urine Glucose (Auto)(UA) NEGATIVE mg/dL 01/22/21147 Urine Blood 1+ H 01/22/21147 Urine Nitrite NEGATIVE 01/22/21147 Urine Bilirubin NEGATIVE 01/22/21147 Urine Urobilinogen 0.2 mg/dL 01/22/21147 Urine Leukocyte Esterase (Auto) NEGATIVE 01/22/21147 Urine WBC (Auto) 3 /HPF 01/22/21147 Urine RBC (Auto) 10 /HPF H 01/22/21147 Urine Hyaline Casts (Auto) 0 /LPF 01/22/21147 Urine Bacteria (Auto) NEGATIVE 01/22/21147 NINA DOAN CNM Jan 22, 2021 02:17
[2021-01-22] MEDS ORDERED: BETAMETHASONE SOLUSPAN 6MG/ML 5ML VIAL (J0702 PER 3MG) IM SCH (05:15)
[2021-01-22 05:44] VITALS: BP 108/57
[2021-01-22 07:16] VITALS: BP 98/57
[2021-01-22 08:30] VITALS: BP 96/51
[2021-01-22 09:11] VITALS: BP 106/69
== END 2021-01-22 09:25 | disposition home or self-care (01) ==
LOC: M LDO 01:10
PROVIDERS: ATTEND Advanced Practice Midwife
DX: O36.8130 Decreased fetal movements, third trimester, not applicable or unspecified (principal); Z3A.36 36 weeks gestation of pregnancy; O99.343 Other mental disorders complicating pregnancy, third trimester; F41.9 Anxiety disorder, unspecified; F32.9 Major depressive disorder, single episode, unspecified; F60.3 Borderline personality disorder; O60.03 Preterm labor without delivery, third trimester
CPT/HCPCS: 59025; 81001; 96372; G0378; G0463; J0702

== ENCOUNTER 2021-01-22 17:26 | Outpatient (CLI) | payer OTHER ==
[~2021-01-22] VITALS: Ht 167.6 cm; Wt 69.9 kg
[2021-01-22 17:41] VITALS: BP 106/65
[2021-01-22] MEDS ORDERED: HOME MED LIST COMPLETE! XX SCH (17:50)
[2021-01-22 19:01] VITALS: BP 83/46
[2021-01-22 19:08] VITALS: BP 104/62
[2021-02-05] MEDS ORDERED: VALT500T PO (13:29)
--- NOTE | 2021-02-05 16:53 | IPNPDOC ---
Text Note Date of Service The patient was seen on 01/22/21. NOTE Brad is a 20-year-old at 36 1/7 with an DINORAH of 02/18/2021 confirmed via first trimester ultrasound. Her is complicated by pyelonephritis at 23 week gestation, borderline personality disorder, anxiety, depression, and HSV2. She presents to labor and delivery with painful uterine contractions. She was discharged from triage earlier this morning with the same complaint. Since that time she feels like the contractions are closer together and more intense. O: Vital Signs and labs-see below. FHR: reactive NST. General: alert and oriented x 3. Does not appear to be in any distress. Respiratory: breathing comfortably on room air, no use of accessory muscles Abdomen: gravid, non-tender to palpation. Cervical exam unchanged from discharge this morning A: IUP at 36 1/7, contractions. P: Patient received betamethasone this morning for contractions and cervical dilation. Plan to discharge home at this time and to return in the AM for second dose of betamethasone. PTL precautiosn reviewed. MORENO CORNEJO MD Feb 05, 2021 16:53
== END 2021-01-22 19:16 | disposition home or self-care (01) ==
LOC: M LDO 17:26
PROVIDERS: ATTEND Obstetrics & Gynecology
DX: O60.03 Preterm labor without delivery, third trimester (principal); Z3A.36 36 weeks gestation of pregnancy
CPT/HCPCS: 59025; G0378; G0463

== ENCOUNTER 2021-01-23 08:04 | Outpatient (CLI) | payer OTHER ==
[~2021-01-23] VITALS: Ht 167.6 cm; Wt 70.7 kg
[2021-01-23 08:15] VITALS: BP 106/66
[2021-01-23] MEDS ORDERED: HOME MED LIST COMPLETE! XX SCH (08:20)
[2021-01-23 08:56] VITALS: BP 110/58
[2021-01-23] MEDS ORDERED: BETAMETHASONE SOLUSPAN 6MG/ML 5ML VIAL (J0702 PER 3MG) IM ONE (09:00)
== END 2021-01-23 08:47 | disposition home or self-care (01) ==
LOC: M LDO 08:04
PROVIDERS: ATTEND Advanced Practice Midwife
DX: O60.03 Preterm labor without delivery, third trimester (principal); Z3A.36 36 weeks gestation of pregnancy
CPT/HCPCS: 59025; 96372; G0378; G0463; J0702

== ENCOUNTER 2021-01-24 18:20 | Outpatient (CLI) | payer OTHER ==
[~2021-01-24] VITALS: Ht 167.6 cm; Wt 71.8 kg
[2021-01-24 18:31] VITALS: BP 112/63
--- NOTE | 2021-01-24 20:49 | IPNPDOC ---
Text Note Date of Service The patient was seen on 01/24/21. NOTE Labor and Delivery Triage Note: S: 20-year-old 2 para 1 at 35 weeks presents with complaints of decreased movement. She reports minimal movement in the last several hours. Denies regular contractions, vaginal bleeding or LOF. Reports active fe marco movement. O: vss, AF no ctx Cat 1 tracing Gen: well appearing, NAD Abd: gravid, soft, nttp -Patient reports movement after prolonged monitoring. A/P: 20-year-old G2, P1 at 35 weeks with reassuring status -home with PTL precautions and FKCs. -f/u at next OB appt Shae Freitas MD VS,Rosalie, I+O VSRosalie I+O Vital Signs Date Time Temp Pulse Resp B/P (MAP) Pulse Ox O2 Delivery O2 Flow Rate FiO2 01/24/21 18:31 98.6 77 18 112/63 (79) SHAE FREITAS MD. Jan 24, 2021 20:49
== END 2021-01-24 20:30 | disposition home or self-care (01) ==
LOC: M LDO 18:20
PROVIDERS: ATTEND Obstetrics & Gynecology
DX: O36.8130 Decreased fetal movements, third trimester, not applicable or unspecified (principal); Z3A.35 35 weeks gestation of pregnancy
CPT/HCPCS: 59025; G0378; G0463

== ENCOUNTER → 2021-02-25 | Outpatient (REF) | payer OTHER ==
[~2021-02-25] MED LIST changes: +ACET-683 PO; +COLA100C5 PO; +IBUP-1022 PO; +VALT500T PO
[2021-02-25 18:15] LABS: APPEARANCE, URINE CLOUDY (CLEAR); BACTERIA, URINE AUTO NEGATIVE (NEGATIVE); BILIRUBIN, URINE AUTO NEGATIVE (NEGATIVE); BLOOD, URINE BLOOD 2+ (NEGATIVE); COLOR, URINE YELLOW (YELLOW); GLUCOSE, URINE (UA) AUTO NEGATIVE (NEGATIVE); KETONE, URINE AUTO 1+ mg/dL (NEGATIVE); LEUKOCYTE ESTERASE, URINE AUTO 3+ (NEGATIVE); MUCUS, URINE MODERATE (NEGATIVE); NITRITE, URINE AUTO NEGATIVE (NEGATIVE); PROTEIN, URINE AUTO 2+ mg/dL (NEGATIVE); RBC, URINE AUTO 126 /HPF (0-3); RENAL EPITHELIAL CELLS 3 /HPF; SPECIFIC GRAVITY URINE AUTO 1.021 (1.002-1.035); SQUAMOUS EPITHELIAL CELL UR AU 11 /HPF (0-6); UROBILINOGEN, URINE AUTO 0.2 mg/dL (0.0-2.0); WBC, URINE AUTO TNTC /HPF (0-3)
== END ==
LOC: M SFHCWAGY 17:00
PROVIDERS: ATTEND Advanced Practice Midwife
DX: R30.0 Dysuria (principal)

== ENCOUNTER 2021-03-16 15:01 | Emergency (ER) | payer OTHER ==
[~2021-03-16] VITALS: Ht 170.2 cm; Wt 64.0 kg
[2021-03-16 15:05] VITALS: BP 106/55
--- OUTSIDE RECORDS SUMMARY | 2021-03-16 15:11 | CCD ---
Author Author [facility] Organization [facility] Address Unknown Phone Unavailable Support Name Relationship Address Phone JELLY MARINELLI Next Of [place] [address] [place] [address] DOOR DASH Next [place] Kin [address] [place] [address] UE Next Of Kin Unknown Unavailable ROXY MARINELLI Next [place] Kin [address] [place] [address] JELLY MARINELLI ECON [address] [place] [address] Unavailable Re-disclosure Warning The records that you are [...] is protected by Article 27-F of the [facility] [place] Public Health law. If you continue you may have access to information: Regarding HIV / AIDS; Provided by facilities licensed or operated by the [facility] [place] Office of Mental Health; or Provided by the [facility] [place] Office for People With Developmental Disabilities. If such information is present, then the following [facility] [place] mandated warning applies: This information has been [...] law may result in a fine or care home sentence or both. A general authorization for the release of medical or other information is NOT sufficient authorization for further disc losure. Encounters Encounter Providers Location Date Indications Data Source(s ) Unknown [address] [facility] [address] 03/06/2021 12:00:00 AM EST eCW1 ([facility]) Unknown [address] [facility] [place] [address] 02/25/2021 12:00:00 AM EST eCW1 ([facility]) Outpatient [address] [facility] [place] [address] 02/25/2021 12:00:00 AM EST eCW1 ([facility]) Unknown [address] [facility] [place] [address] 02/25/2021 12:00:00 AM EST eCW1 ([facility]) ( ESTOB) enter Est OB [address] [place] [address] 02/05/2021 12:00:00 AM EDT eCW1 ([facility]) ( ESTOB) enter Est OB [address] [place] [address] 01/30/2021 12:00:00 AM EDT eCW1 ([facility]) ( ESTOB) WCenter Est OB [address] [place] [address] 12/31/2020 12:00:00 AM EDT eCW1 ([facility]) Unknown [address] [facility] [place] [address] 12/26/2020 12:00:00 AM EDT eCW1 ([facility]) ( ESTOB) enter Est OB [address] [place] [address] 12/13/2020 12:00:00 AM EDT eCW1 ([facility]) (WC ESTOB) enter Est OB [address] [place] [address] 12/05/2020 12:00:00 AM EDT eCW1 ([facility]) ( ESTOB) enter Est OB [address] [place] [address] 11/22/2020 12:00:00 AM EDT eCW1 ([facility]) [place] [address] [facility] [address] 10/31/2020 12:00:00 AM EDT eCW1 ([facility]) Unknown [address] [facility] [address] 10/24/2020 12:00:00 AM EDT eCW1 ([facility]) ( ESTOB) enter Est OB [address] [place] [address] 07/27/2020 12:00:00 AM EDT eCW1 ([facility]) ( NEWOB) enter New OB Visit [address] [place] [address] 06/29/2020 12:00:00 AM EDT eCW1 ([facility]) Immunizations Vaccine Date Status Description Data Source(s) Tdap 12/31/2020 02:15:00 PM EDT completed e CW1 ([facility]) Tdap 12/31/2020 02:15:00 PM EDT completed e CW1 ([facility]) Tdap 12/31/2020 02:15:00 PM EDT completed e CW1 ([facility]) Tdap 12/31/2020 02:15:00 PM EDT completed e CW1 ([facility]) Tdap 12/31/2020 02:15:00 PM EDT completed e CW1 ([facility]) Tdap 12/31/2020 02:15:00 PM EDT completed e CW1 ([facility]) Tdap 12/31/2020 02:15:00 PM EDT completed e CW1 ([facility]) Tdap 12/31/2020 02:15:00 PM EDT completed e CW1 ([facility]) Medications Medication Brand Name Start Date Product Form Dose Route Admi nistrative Instructions Pharmacy Instructions Status Indications Reaction Description Data Source(s) valacyclovir 1000 MG Oral Tablet [Valtrex] Valtrex 1 GM Valt ernestine 1 GM 03/06/2021 12:00:00 AM EST 1.0 {tablet} active Va ltrex 1 GM eCW1 ([facility]) Cephalexin 500 MG Oral Capsule Cephalexin 500 MG 02/25/2021 12:00:0 0 AM EST 1.0 {capsule} active Cephalexin 500 MG eCW1 ([facility]) Cephalexin 500 MG Oral Capsule Cephalexin 500 MG 02/25/2021 12:00:0 0 AM EST 1.0 {capsule} active Cephalexin 500 MG eCW1 ([facility]) Cephalexin 500 MG Oral Capsule Cephalexin 500 MG 02/25/2021 12:00:0 0 AM EST 1.0 {capsule} active Cephalexin 500 MG eCW1 ([facility]) Cephalexin 500 MG Oral Capsule Cephalexin 500 MG 02/25/2021 12:00:0 0 AM EST 1.0 {capsule} active Cephalexin 500 MG eCW1 ([facility]) valacyclovir 500 MG Oral Tablet [Valtrex] Valtrex 500 MG Elizabeth trex 500 MG 12/31/2020 12:00:00 AM EDT 1.0 {tablet} active Valtrex 500 MG eCW1 ([facility]) valacyclovir 500 MG Oral Tablet [Valtrex] Valtrex 500 MG Elizabeth trex 500 MG 12/31/2020 12:00:00 AM EDT 1.0 {tablet} active Valtrex 500 MG eCW1 ([facility]) valacyclovir 500 MG Oral Tablet [Valtrex] Valtrex 500 MG Elizabeth trex 500 MG 12/31/2020 12:00:00 AM EDT 1.0 {tablet} active Valtrex 500 MG eCW1 ([facility]) valacyclovir 500 MG Oral Tablet [Valtrex] Valtrex 500 MG Elizabeth trex 500 MG 12/31/2020 12:00:00 AM EDT 1.0 {tablet} active Valtrex 500 MG eCW1 ([facility]) valacyclovir 500 MG Oral Tablet [Valtrex] Valtrex 500 MG Elizabeth trex 500 MG 12/31/2020 12:00:00 AM EDT 1.0 {tablet} active Valtrex 500 MG eCW1 ([facility]) valacyclovir 500 MG Oral Tablet [Valtrex] Valtrex 500 MG Elizabeth trex 500 MG 12/31/2020 12:00:00 AM EDT 1.0 {tablet} active Valtrex 500 MG eCW1 ([facility]) valacyclovir 500 MG Oral Tablet [Valtrex] Valtrex 500 MG Elizabeth trex 500 MG 12/31/2020 12:00:00 AM EDT 1.0 {tablet} active Valtrex 500 MG eCW1 ([facility]) valacyclovir 500 MG Oral Tablet [Valtrex] Valtrex 500 MG Elizabeth trex 500 MG 12/31/2020 12:00:00 AM EDT 1.0 {tablet} active Valtrex 500 MG eCW1 ([facility]) Cephalexin 500 MG Oral Capsule Cephalexin 500 MG 10/24/2020 12:00:0 0 AM EDT 1.0 {capsule} active Cephalexin 500 MG eCW1 ([facility]) Cephalexin 500 MG Oral Capsule Cephalexin 500 MG 10/24/2020 12:00:0 0 AM EDT 1.0 {capsule} suspended Cephalexin 500 M G eCW1 ([facility]) Cephalexin 500 MG Oral Capsule Cephalexin 500 MG 10/24/2020 12:00:0 0 AM EDT 1.0 {capsule} suspended Cephalexin 500 M G eCW1 ([facility]) Cephalexin 500 MG Oral Capsule Cephalexin 500 MG 10/24/2020 12:00:0 0 AM EDT 1.0 {capsule} suspended Cephalexin 500 M G eCW1 ([facility]) Cephalexin 500 MG Oral Capsule Cephalexin 500 MG 10/24/2020 12:00:0 0 AM EDT 1.0 {capsule} suspended Cephalexin 500 M G eCW1 ([facility]) Cephalexin 500 MG Oral Capsule Cephalexin 500 MG 10/24/2020 12:00:0 0 AM EDT 1.0 {capsule} suspended Cephalexin 500 M G eCW1 ([facility]) Cephalexin 500 MG Oral Capsule Cephalexin 500 MG 10/24/2020 12:00:0 0 AM EDT 1.0 {capsule} suspended Cephalexin 500 M G eCW1 ([facility]) Cephalexin 500 MG Oral Capsule Cephalexin 500 MG 10/24/2020 12:00:0 0 AM EDT 1.0 {capsule} suspended Cephalexin 500 M G eCW1 ([facility]) Cephalexin 500 MG Oral Capsule Cephalexin 500 MG 10/24/2020 12:00:0 0 AM EDT 1.0 {capsule} active Cephalexin 500 MG eCW1 ([facility]) Cephalexin 500 MG Oral Capsule Cephalexin 500 MG 10/24/2020 12:00:0 0 AM EDT 1.0 {capsule} suspended Cephalexin 500 M G eCW1 ([facility]) Cephalexin 500 MG Oral Capsule Cephalexin 500 MG 10/24/2020 12:00:0 0 AM EDT 1.0 {capsule} suspended Cephalexin 500 M G eCW1 ([facility]) Cephalexin 500 MG Oral Capsule Cephalexin 500 MG 10/24/2020 12:00:0 0 AM EDT 1.0 {capsule} suspended Cephalexin 500 M G eCW1 ([facility]) Cephalexin 500 MG Oral Capsule Cephalexin 500 MG 10/24/2020 12:00:0 0 AM EDT 1.0 {capsule} suspended Cephalexin 500 M G eCW1 ([facility]) Insurance Providers Payer name Policy type / Coverage type Policy ID Covered republican ID Covered republican's relationship to mehta Policy Mehta Plan Information [facility] [id number] [facility] [id number] [facility] [id number] [facility] [id number] P [id number] [facility] [id number] [facility] [id number] [facility] [id number] [facility] [id number] [facility] [id number] [facility] [id number] Problems, Conditions, and Diagnoses Code Display Name Description Problem Type Effective Dates Data Source(s) F41.8 [id number] Depression with anxiety Problem 11/21/2020 1 2:00:00 AM EDT eCW1 ([facility]) Z34.80 care Supervision of other normal Theo dejuan 06/29/2020 12:00:00 AM EDT eCW1 ([facility]) Surgeries/Procedures Procedure Description Date Indications Data Source(s) NONSTRESS TEST 12/05/2020 12:00:00 AM EDT eCW1 ([facility]) Results ID Date Data Source [id number] 02/05/2021 01:58:00 PM EDT [facility] Name Value Range Interpretation Code Description Data Kavya rce(s) Supporting Document(s) SARS coronavirus 2 RNA [Presence] in Res piratory specimen by VIANEY with probe detection NEGATIVE [facility] This lab was ordered by [facility] a nd reported by [facility]. ID Date Data Source [id number] 11/26/2020 12:00:00 AM EDT eCW1 ([facility]) Name Value Range Interpretation Code Description Data Kavya rce(s) Supporting Document(s) HIV 1&2 ANTIBODY SCREEN eCW1 ( [facility]) ID Date Data Source SYPHILIS ANTIBODY (RPR SCREEN) 11/26/2020 12:00:00 AM EDT eC W1 ([facility]) Name Value Range Interpretation Code Description Data Kavya rce(s) Supporting Document(s) NONREACTIVE NONREACTIVE SYPHILIS eCW1 ([facility]) ID Date Data Source Glucose Challenge Test 1 Hour 11/26/2020 12:00:00 AM EDT eCW 1 ([facility]) Name Value Range Interpretation Code Description Data Kavya rce(s) Supporting Document(s) 93 LESS THAN 140 GLUCOSE CHALLENGE TEST 1 HOUR eCW1 ([facility]) ID Date Data Source HEPATITIS C ANTIBODY INDEX 11/26/2020 12:00:00 AM EDT eCW1 ( [facility]) Name Value Range Interpretation Code Description Data Kavya rce(s) Supporting Document(s) 0.1 <0.8 HEPATITIS C VIRUS LIZZY INDEX eC W1 ([facility]) ID Date Data Source CBC - Complete Blood Count 11/26/2020 12:00:00 AM EDT eCW1 ( [facility]) Name Value Range Interpretation Code Description Data Kavya rce(s) Supporting Document(s) 3.79 4.00-5.40 RED BLOOD COUNT eCW1 ([facility]) 12.1 12.0-15.5 HEMOGLOBIN eCW1 ([facility]) 11.1 4.0-10.0 WHITE BLOOD COUNT eCW1 ([facility]) 95.0 80.0-96.0 MEAN CORPUSCULAR VOLUME e CW1 ([facility]) 31.9 27.0-33.0 MEAN CORPUSCULAR HEMOGLOB IN eCW1 ([facility]) 36.0 36.0-47.0 HEMATOCRIT eCW1 ([facility]) 318 150-450 PLATELET COUNT, AUTOMATED eCW1 ([facility]) 12.9 11.5-14.5 RED CELL DISTRIBUTION WID TH eCW1 ([facility]) 33.6 32.0-36.5 MEAN CORPUSCULAR HGB CONC eCW1 ([facility]) ID Date Data Source Type and Screen (D Rh Antibody Screen) 11/26/2020 12:00:00 A M EDT eCW1 ([facility]) Name Value Range Interpretation Code Description Data Kavya rce(s) Supporting Document(s) A POSITIVE BLOOD TYPE eCW1 ([facility]) NEGATIVE AB SCREEN (INDIRECT COOMB S)VIS eCW1 ([facility]) ID Date Data Source URINE CULTURE 11/22/2020 12:00:00 AM EDT eCW1 ([facility]) Name Value Range Interpretation Code Description Data Kavya rce(s) Supporting Document(s) URINE CULTURE eCW1 ([facility]) ID Date Data Source [id number] 07/12/2020 12:00:00 AM EDT [facility] Name Value Range Interpretation Code Description Data Kavya rce(s) Supporting Document(s) SARS-CoV2 Rapid Antigen Negative [facility] This lab was reported by [facility]. ID Date Data Source HBSAG 06/29/2020 12:00:00 AM EDT eCW1 ([facility]) Name Value Range Interpretation Code Description Data Kavya rce(s) Supporting Document(s) NEGATIVE NEGATIVE eCW1 ([facility]) ID Date Data Source RUBELLA IMMUNE STATUS IgG 06/29/2020 12:00:00 AM EDT eCW1 ([facility]) Name Value Range Interpretation Code Description Data Kavya rce(s) Supporting Document(s) IMMUNE IMMUNE eCW1 ([facility]) Procedure Social History Code Duration Value Status Description Data Source(s ) Smoking 02/04/2021 12:00:00 AM EDT Never Smoker completed Never S moker eCW1 ([facility]) Smoking 02/04/2021 12:00:00 AM EDT Never Smoker completed Never S moker eCW1 ([facility]) Smoking 02/04/2021 12:00:00 AM EDT Never Smoker completed Never S moker eCW1 ([facility]) Smoking 02/04/2021 12:00:00 AM EDT Never Smoker completed Never S moker eCW1 ([facility]) Smoking 02/04/2021 12:00:00 AM EDT Never Smoker completed Never S moker eCW1 ([facility]) Smoking 02/04/2021 12:00:00 AM EDT Never Smoker completed Never S moker eCW1 ([facility]) Smoking 12/31/2020 12:00:00 AM EDT Never Smoker completed Never S moker eCW1 ([facility]) Smoking 12/31/2020 12:00:00 AM EDT Never Smoker completed Never S moker eCW1 ([facility]) Smoking 12/05/2020 12:00:00 AM EDT Never Smoker completed Never S moker eCW1 ([facility]) Smoking 12/05/2020 12:00:00 AM EDT Never Smoker completed Never S moker eCW1 ([facility]) Smoking 12/05/2020 12:00:00 AM EDT Never Smoker completed Never S moker eCW1 ([facility]) Smoking 08/23/2020 12:00:00 AM EDT Never Smoker completed Never S moker eCW1 ([facility]) Smoking 08/23/2020 12:00:00 AM EDT Never Smoker completed Never S moker eCW1 ([facility]) Smoking 07/27/2020 12:00:00 AM EDT Never Smoker completed Never S moker eCW1 ([facility]) Smoking 06/29/2020 12:00:00 AM EDT Never Smoker completed Never S moker eCW1 ([facility]) Vital Signs ID Date Data Source UNK Name Value Range Interpretation Code Description Data Source(s) Body weight 157 [lb_av] 157 [lb_av] eCW1 ([facility]) Body height 66 [in_i] 66 [in_i] eCW1 ([facility]) Body mass index (BMI) [Ratio] 25.34 kg/m2 25.34 kg/m2 eCW1 ([facility]) Systolic blood pressure 102 mm[Hg] 102 mm[Hg] e CW1 ([facility]) Diastolic blood pressure 62 mm[Hg] 62 mm[Hg] eCW1 ([facility]) Body weight 155 [lb_av] 155 [lb_av] eCW1 ([facility]) Body height 66 [in_i] 66 [in_i] eCW1 ([facility]) Body mass index (BMI) [Ratio] 25.018 kg/m2 25.0 18 kg/m2 eCW1 ([facility]) Systolic blood pressure 122 mm[Hg] 122 mm[Hg] e CW1 ([facility]) Diastolic blood pressure 68 mm[Hg] 68 mm[Hg] eCW1 ([facility]) Body weight 152 [lb_av] 152 [lb_av] eCW1 ([facility]) Body height 66 [in_i] 66 [in_i] eCW1 ([facility]) Body mass index (BMI) [Ratio] 24.533 kg/m2 24.5 33 kg/m2 eCW1 ([facility]) Systolic blood pressure 100 mm[Hg] 100 mm[Hg] e CW1 ([facility]) Diastolic blood pressure 58 mm[Hg] 58 mm[Hg] eCW1 ([facility]) Body weight 150 [lb_av] 150 [lb_av] eCW1 ([facility]) Body weight 68.04 kg 68.04 kg eCW1 ([facility]) Body height 66 [in_i] 66 [in_i] eCW1 ([facility]) Body mass index (BMI) [Ratio] 24.211 kg/m2 24.2 11 kg/m2 eCW1 ([facility]) Systolic blood pressure 98 mm[Hg] 98 mm[Hg] e CW1 ([facility]) Diastolic blood pressure 60 mm[Hg] 60 mm[Hg] eCW1 ([facility]) Body weight 148.0 [lb_av] 148.0 [lb_av] eCW1 ([facility]) Body weight 67.13 kg 67.13 kg eCW1 ([facility]) Body height 66 [in_i] 66 [in_i] eCW1 ([facility]) Body mass index (BMI) [Ratio] 23.888 kg/m2 23.8 88 kg/m2 eCW1 ([facility]) Systolic blood pressure 100 mm[Hg] 100 mm[Hg] e CW1 ([facility]) Diastolic blood pressure 60 mm[Hg] 60 mm[Hg] eCW1 ([facility]) Body weight 149 [lb_av] 149 [lb_av] eCW1 ([facility]) Body weight 67.59 kg 67.59 kg eCW1 ([facility]) Body height 66 [in_i] 66 [in_i] eCW1 ([facility]) Body mass index (BMI) [Ratio] 24.049 kg/m2 24.0 49 kg/m2 eCW1 ([facility]) Systolic blood pressure 106 mm[Hg] 106 mm[Hg] e CW1 ([facility]) Diastolic blood pressure 60 mm[Hg] 60 mm[Hg] eCW1 ([facility]) Body weight 162 [lb_av] 162 [lb_av] eCW1 ([facility]) Body height 66 [in_i] 66 [in_i] eCW1 ([facility]) Body mass index (BMI) [Ratio] 26.147 kg/m2 26.1 47 kg/m2 eCW1 ([facility]) Systolic blood pressure 108 mm[Hg] 108 mm[Hg] e CW1 ([facility]) Diastolic blood pressure 62 mm[Hg] 62 mm[Hg] eCW1 ([facility]) Body weight 160.8 [lb_av] 160.8 [lb_av] eCW1 ([facility]) Body height 66 [in_i] 66 [in_i] eCW1 ([facility]) Body mass index (BMI) [Ratio] 25.954 kg/m2 25.9 54 kg/m2 eCW1 ([facility]) Systolic blood pressure 110 mm[Hg] 110 mm[Hg] e CW1 ([facility]) Diastolic blood pressure 68 mm[Hg] 68 mm[Hg] eCW1 ([facility]) Patient Treatment Plan of Care Planned Activity Planned Date Details Description Data Source (s) valacyclovir 1000 MG Oral Tablet [Valtrex] 03/06/2021 12:00:[address] eCW1 ([facility]) Cephalexin 500 MG Oral Capsule 02/25/2021 12:00:00 AM EST eCW1 ([facility]) Cephalexin 500 MG Oral Capsule 02/25/2021 12:00:00 AM EST eCW1 ([facility]) Cephalexin 500 MG Oral Capsule 02/25/2021 12:00:00 AM EST eCW1 ([facility]) Cephalexin 500 MG Oral Capsule 02/25/2021 12:00:00 AM EST eCW1 ([facility]) valacyclovir 500 MG Oral Tablet [Valtrex] 12/31/2020 12:00:00 AM ED T eCW1 ([facility]) valacyclovir 500 MG Oral Tablet [Valtrex] 12/31/2020 12:00:00 AM ED T eCW1 ([facility]) Cephalexin 500 MG Oral Capsule 10/24/2020 12:00:00 AM EDT eCW1 ([facility]) Cephalexin 500 MG Oral Capsule 10/24/2020 12:00:00 AM EDT eCW1 ([facility])
--- OUTSIDE RECORDS SUMMARY | 2021-03-16 15:11 | CCD ---
Author Author [facility] Organization [facility] Address Unknown Phone Unavailable Care Team Providers Care Programming Coordinator Name Role Phone Cathy Jose Unavailable PROBLEMS Type Condition ICD9-CM Code [id number] Code Onset Dates Condition S tatus W/U Status Risk SNOMED Code Notes Problem Supervision of other normal Z34.80 Ac tive confirm [id number] Problem Depression with anxiety F41.8 Active confirmed [id number] ALLERGIES No Known Allergies ENCOUNTERS from 1999 to 2021-02-25 Encounter Location Date Provider Diagnosis [facility] [address] [place] [address] [place] [address] Feb, Cathy Jose Dysuria R30.0 IMMUNIZATIONS Vaccine Route Administration Date Status TDAP 0.5mL Boostrix IM Intramuscular Dec 31, 2020 Administere d SOCIAL HISTORY Tobacco Use: Social History Observation Description Date Details (start date - stop date) Never Smoker Sex Assigned At : Social History Observation Description Sex Assigned At Unknown Alcohol Screening: Question Answer Notes Did you have a drink containing alcohol in the past year? No Points 0 Interpretation Negative Tobacco Use: Question Answer Notes Are you a: never smoker REASON FOR REFERRAL No Information VITAL SIGNS No information MEDICATIONS Medication SIG (Take, Route, Frequency, Duration) Notes Start Da te End Date Status Valtrex 500 MG 1 tablet Orally Once a day for 30 day(s) Dec, Active 27-1 MG 1 tablet Orally Once a day Active Cephalexin 500 MG 1 capsule Orally every 6 hrs for 7 days Oct, Not-Taking Cephalexin 500 MG 1 capsule Orally every 6 hours for 5 days Feb, Active PROCEDURES No Information RESULTS No Results REASON FOR VISIT nurse visit urine sample MEDICAL (GENERAL) HISTORY Type Description Date Medical History Borderline personality disorder Medical History Anxiety Medical History Depression Surgical History D&C 2019 Hospitalization History childbirth Goals Section No Information Health Concerns No Information MEDICAL EQUIPMENT No Information MENTAL STATUS No Information FUNCTIONAL STATUS No Information ASSESSMENTS Encounter Date Diagnosis Assessment Notes Treatment Notes Treatm ent Clinical Notes Feb, Dysuria (ICD-10 - R30.0) PLAN OF TREATMENT Medication Medication Name Sig Start Date Stop Date Cephalexin 500 MG 1 capsule Orally every 6 hours for 5 days 15 N , 2020 Pending Tests Test Name Order Date Urinalysis, Complete with Micro 2021-02-25 URINE CULTURE 2021-02-25 Insurance Providers Payer Name Payer Address Payer Phone Insured Name Patient Relati onship to Insured Coverage Start Date Coverage End Date [address] [phone] HOWARD MARINELLI self
--- OUTSIDE RECORDS SUMMARY | 2021-03-16 15:11 | CCD ---
Author Author [facility] Organization [employer] [facility] Address Unknown Phone Unavailable Care Team Providers Care Ore Trimmer Name Role Phone Karon Gan Unavailable PROBLEMS Type Condition ICD9-CM Code WER10-GY Code Onset Dates Condition S tatus W/U Status Risk SNOMED Code Notes Problem Supervision of other normal Z34.80 Ac tive confirm [id number] Problem Depression with anxiety F41.8 Active confirmed [id number] ALLERGIES No Known Allergies ENCOUNTERS from 1999 to 2021-02-06 Encounter Location Date Provider Diagnosis [facility] [address] [place] [address] [place] [address] Jan, Karon Gan Encounter for superv ision of other normal , third trimester Z34.83 and 38 weeks gestation of Z3A.38 IMMUNIZATIONS Vaccine Route Administration Date Status TDAP [...] REASON FOR REFERRAL No Information VITAL SIGNS Weight 157 lbs Jan, Height 66 in Jan, BMI 25.34 kg/m2 Jan, Blood pressure systolic 102 mm Hg Jan, Blood pressure diastolic 62 mm Hg Jan, MEDICATIONS Medication SIG (Take, Route, Frequency, Duration) Notes Start Da te End Date Status Valtrex 500 MG 1 tablet Orally Once a day for 30 day(s) Dec, Active 27-1 MG 1 tablet Orally Once a day Active Cephalexin 500 MG 1 capsule Orally every 6 hrs for 7 days Oct, Not-Taking PROCEDURES No Information RESULTS No Results REASON FOR VISIT 1 wk pn MEDICAL (GENERAL) HISTORY Type Description Date Medical History Borderline personality disorder Medical History Anxiety Medical History Depression Surgical History D&C 2019 Hospitalization History childbirth Goals Section No Information Health Concerns No Information MEDICAL EQUIPMENT No Information MENTAL STATUS No Information FUNCTIONAL STATUS No Information ASSESSMENTS Encounter Date Diagnosis Assessment Notes Treatment Notes Treatm ent Clinical Notes Jan, Encounter for supervision of other normal , third trimester (ICD-10 - Z34.83) Jan, 38 weeks gestation of (ICD-10 - Z3A.38 ) PLAN OF TREATMENT Next Appt Details Post Reason:Post Follow Up:Post partumPost Insurance Providers Payer Name Payer Address Payer Phone Insured Name Patient Relati onship to Insured Coverage Start Date Coverage End Date [address] [phone] HOWARD MARINELLI self
--- OUTSIDE RECORDS SUMMARY | 2021-03-16 15:11 | CCD ---
Author Author [employer] [facility] Organization [employer] [facility] Address Unknown Phone Unavailable Care Team Providers Care Mobile Architect Name Role Phone Cathy Jose Unavailable PROBLEMS Type Condition ICD9-CM Code [id number] Code Onset Dates Condition S tatus W/U Status Risk SNOMED Code Notes Problem Supervision of other normal Z34.80 Ac tive confirm [id number] Problem Depression with anxiety F41.8 Active confirmed [id number] ALLERGIES No Known Allergies ENCOUNTERS from 1999 to 2021-02-25 Encounter Location Date Provider Diagnosis [facility] [address] [place] [address] [place] [address] Feb, Cathy Jose IMMUNIZATIONS Vaccine Route Administration Date Status TDAP [...] Information RESULTS No Results REASON FOR VISIT UTI MEDICAL (GENERAL) HISTORY Type Description Date Medical History Borderline personality disorder Medical History Anxiety Medical History Depression Surgical History D&C 2019 Hospitalization History childbirth Goals Section No Information Health Concerns No Information MEDICAL EQUIPMENT No Information MENTAL STATUS No Information FUNCTIONAL STATUS No Information ASSESSMENTS No Information PLAN OF TREATMENT Medication Medication Name Sig Start Date Stop Date Cephalexin 500 MG 1 capsule Orally every 6 hours for 5 days 15 N 2020 Insurance Providers Payer Name Payer Address Payer Phone Insured Name Patient Relati onship to Insured Coverage Start Date Coverage End Date [place] [phone] HOWARD MRAINELLI self
--- OUTSIDE RECORDS SUMMARY | 2021-03-16 15:11 | CCD ---
Author Author [employer] [facility] Organization [employer] [facility] Address Unknown Phone Unavailable Care Team Providers Care Torts Law Professor Name Role Phone Hawa Ryder Unavailable PROBLEMS Type Condition ICD9-CM Code YLV05-PK Code Onset Dates Condition S tatus W/U Status Risk SNOMED Code Notes Problem Supervision of other normal Z34.80 Ac tive confirm [id number] Problem Depression with anxiety F41.8 Active confirmed [id number] ALLERGIES No Known Allergies ENCOUNTERS from 1999 to 2021-03-06 Encounter Location Date Provider Diagnosis [facility] [address] [place] [address] [place] [address] Feb, Hawa Ryder IMMUNIZATIONS Vaccine Route Administration Date Status TDAP [...] a day for 30 day(s) Dec, Active Cephalexin 500 MG 1 capsule Orally every 6 hours for 5 days Feb, Active 27-1 MG 1 tablet Orally Once a day Active Cephalexin 500 MG 1 capsule Orally every 6 hrs for 7 days Oct, Not-Taking Valtrex 1 GM 1 tablet Orally BID for 3 day(s) Feb, Active PROCEDURES No Information RESULTS No Results REASON FOR VISIT Rx request MEDICAL (GENERAL) HISTORY Type Description Date Medical [...] hours for 5 days 15 N 2020 Valtrex 1 GM 1 tablet Orally BID for 3 day(s) Feb, Insurance Providers Payer Name Payer Address Payer Phone Insured Name Patient Relati onship to Insured Coverage Start Date Coverage End Date [address] [phone] HOWARD MARINELLI self
--- OUTSIDE RECORDS SUMMARY | 2021-03-16 15:11 | CCD ---
Author Author [facility] [employer] [facility] Organization [facility] [employer] Syst ems Address Unknown Phone Unavailable Care Team Providers Care Counter Waitress/Waiter Name Role Phone Karon Gan Unavailable PROBLEMS Type Condition ICD9-CM Code VKS18-LB Code Onset Dates Condition S tatus W/U Status Risk SNOMED Code Notes Problem Supervision of other normal Z34.80 Ac tive confirm [id number] Problem Depression with anxiety F41.8 Active confirmed [id number] ALLERGIES No Known Allergies ENCOUNTERS from 1999 to 2021-02-06 Encounter Location Date Provider Diagnosis [facility] [address] [place] [address] [place] [address] Jan, Karon Gan Encounter for superv ision of other normal , third trimester Z34.83 and 37 weeks gestation of Z3A.37 IMMUNIZATIONS Vaccine Route Administration Date Status TDAP [...] FOR REFERRAL No Information VITAL SIGNS Weight 155 lbs Jan, Height 66 in Jan, BMI 25.018 kg/m2 Jan, Blood pressure systolic 122 mm Hg Jan, Blood pressure diastolic 68 mm Hg Jan, MEDICATIONS Medication SIG (Take, [...] RESULTS No Results REASON FOR VISIT 1 WK PN MEDICAL (GENERAL) HISTORY Type Description Date Medical [...] , third trimester (ICD-10 - Z34.83) Jan, 37 weeks gestation of (ICD-10 - Z3A.37 ) PLAN OF TREATMENT Next Appt Details 1 Week Reason: Follow Up:1 WeekPrenatal Insurance Providers Payer Name Payer Address Payer Phone Insured Name Patient Relati onship to Insured Coverage Start Date Coverage End Date [address] [phone] HOWARD MARINELLI self
--- OUTSIDE RECORDS SUMMARY | 2021-03-16 15:11 | CCD ---
Author Author [employer] [facility] [facility] Organization [employer] [facility] Address Unknown Phone Unavailable Care Team Providers Care Education Assistant Name Role Phone Cathy Jose Unavailable PROBLEMS Type Condition ICD9-CM Code TQP38-UQ Code Onset Dates Condition S tatus W/U Status Risk SNOMED Code Notes Problem Supervision of other normal Z34.80 Ac tive confirm [id number] Problem Depression with anxiety F41.8 Active confirmed [id number] ALLERGIES No Known Allergies ENCOUNTERS from 1999 to 2021-02-25 Encounter Location Date Provider Diagnosis [facility] [address] [place] [address] [place] [address] Feb, Cathy Jose IMMUNIZATIONS Vaccine Route Administration [...] Information RESULTS No Results REASON FOR VISIT PP-UTI Sx MEDICAL (GENERAL) HISTORY Type Description Date Medical [...] Insured Coverage Start Date Coverage End Date [address] [phone] HOWARD MARINELLI self
--- OUTSIDE RECORDS SUMMARY | 2021-03-16 16:39 | CCD ---
Author Author [facility] Organization [facility] Address Unknown Phone Unavailable Support Name Relationship Address Phone JELLY MARINELLI Next Of Kin [phone] [place] [address] DOOR DASH Next [place] [address] [place] [address] UE Next Of Kin Unknown Unavailable ROXY MARINELLI Next Of Kin [address] [place] [address] JELLY MARINELLI E[place] [address] [place] [address] Unavailable Re-disclosure Warning The records that you [...] is protected by Article 27-F of the [facility] Public Health law. If you continue you may have access to information: Regarding HIV / AIDS; Provided by facilities licensed or operated by the [facility] Office of Mental Health; or Provided by the [facility] Office for People With Developmental Disabilities. If such information is present, then the following [facility] mandated warning applies: This information has [...] law may result in a fine or alf sentence or both. A general authorization for the release of medical or other information is NOT sufficient authorization for further disc losure. Encounters Encounter Providers Location Date Indications Data Source(s ) Unknown [address] [facility] [address] 03/06/2021 12:00:00 AM EST eCW1 ([facility]) Unknown [address] [facility] [place] [address] 02/25/2021 12:00:00 AM EST eCW1 ([facility]) Outpatient [address] [facility] [place] [address] 02/25/2021 12:00:00 AM EST eCW1 ([facility]) Unknown [address] [facility] [place] [address] 02/25/2021 12:00:00 AM EST eCW1 ([facility]) ( ESTOB) enter Est OB [address] [place] [address] 02/05/2021 12:00:00 AM EDT eCW1 ([facility]) ( ESTOB) enter Est OB [address] [place] [address] 01/30/2021 12:00:00 AM EDT eCW1 ([facility]) ( ESTOB) WCenter Est OB [address] [place] [address] 12/31/2020 12:00:00 AM EDT eCW1 ([facility]) Unknown [address] [facility] [place] [address] 12/26/2020 12:00:00 AM EDT eCW1 ([facility]) ( ESTOB) enter Est OB [address] [place] [address] 12/13/2020 12:00:00 AM EDT eCW1 ([facility]) (WC ESTOB) enter Est OB [address] [place] [address] 12/05/2020 12:00:00 AM EDT eCW1 ([facility]) ( ESTOB) enter Est OB [address] [place] [address] 11/22/2020 12:00:00 AM EDT eCW1 ([facility]) [place] [address] [facility] [place] [address] 10/31/2020 12:00:00 AM EDT eCW1 ([facility]) Unknown [address] [facility] [place] [address] 10/24/2020 12:00:00 AM EDT eCW1 ([facility]) ( ESTOB) enter Est OB [address] [place] [address] 07/27/2020 12:00:00 AM EDT eCW1 ([facility]) ( NEWOB) enter New OB Visit [address] [place] [address] 06/29/2020 12:00:00 AM EDT eCW1 ([facility]) Immunizations Vaccine Date Status Description Data Source(s) Tdap 12/31/2020 02:15:00 PM EDT completed e CW1 ([facility]) Tdap 12/31/2020 02:15:00 PM EDT completed e CW1 ([facility]) Tdap 12/31/2020 02:15:00 PM EDT completed e CW1 ([facility]) Tdap 12/31/2020 02:15:00 PM EDT completed e CW1 ([facility]) Tdap 12/31/2020 02:15:00 PM EDT completed e CW1 ([facility]) Tdap 12/31/2020 02:15:00 PM EDT completed e CW1 ([facility]) Tdap 12/31/2020 02:15:00 PM EDT completed e CW1 ([facility]) Tdap 12/31/2020 02:15:00 PM EDT completed e CW1 ([facility]) Medications Medication Brand Name Start Date Product Form Dose Route Admi nistrative Instructions Pharmacy Instructions Status Indications Reaction Description Data Source(s) valacyclovir 1000 MG Oral Tablet [Valtrex] Valtrex 1 GM Valt ernestine 1 GM 03/06/2021 12:00:00 AM EST 1.0 {tablet} active Va ltrex 1 GM eCW1 ([facility]) Cephalexin 500 MG Oral Capsule Cephalexin 500 MG 02/25/2021 12:00:0 0 AM EST 1.0 {capsule} active Cephalexin 500 MG eCW1 ([facility]) Cephalexin 500 MG Oral Capsule Cephalexin 500 MG 02/25/2021 12:00:0 0 AM EST 1.0 {capsule} active Cephalexin 500 MG eCW1 ([facility]) Cephalexin 500 MG Oral Capsule Cephalexin 500 MG 02/25/2021 12:00:0 0 AM EST 1.0 {capsule} active Cephalexin 500 MG eCW1 ([facility]) Cephalexin 500 MG Oral Capsule Cephalexin 500 MG 02/25/2021 12:00:0 0 AM EST 1.0 {capsule} active Cephalexin 500 MG eCW1 ([facility]) valacyclovir 500 MG Oral Tablet [Valtrex] Valtrex 500 MG Elizabeth trex 500 MG 12/31/2020 12:00:00 AM EDT 1.0 {tablet} active Valtrex 500 MG eCW1 ([facility]) valacyclovir 500 MG Oral Tablet [Valtrex] Valtrex 500 MG Elizabeth trex 500 MG 12/31/2020 12:00:00 AM EDT 1.0 {tablet} active Valtrex 500 MG eCW1 ([facility]) valacyclovir 500 MG Oral Tablet [Valtrex] Valtrex 500 MG Elizabeth trex 500 MG 12/31/2020 12:00:00 AM EDT 1.0 {tablet} active Valtrex 500 MG eCW1 ([facility]) valacyclovir 500 MG Oral Tablet [Valtrex] Valtrex 500 MG Elizabeth trex 500 MG 12/31/2020 12:00:00 AM EDT 1.0 {tablet} active Valtrex 500 MG eCW1 ([facility]) valacyclovir 500 MG Oral Tablet [Valtrex] Valtrex 500 MG Elizabeth trex 500 MG 12/31/2020 12:00:00 AM EDT 1.0 {tablet} active Valtrex 500 MG eCW1 ([facility]) valacyclovir 500 MG Oral Tablet [Valtrex] Valtrex 500 MG Elizabeth trex 500 MG 12/31/2020 12:00:00 AM EDT 1.0 {tablet} active Valtrex 500 MG eCW1 ([facility]) valacyclovir 500 MG Oral Tablet [Valtrex] Valtrex 500 MG Elizabeth trex 500 MG 12/31/2020 12:00:00 AM EDT 1.0 {tablet} active Valtrex 500 MG eCW1 ([facility]) valacyclovir 500 MG Oral Tablet [Valtrex] Valtrex 500 MG Elizabeth trex 500 MG 12/31/2020 12:00:00 AM EDT 1.0 {tablet} active Valtrex 500 MG eCW1 ([facility]) Cephalexin 500 MG Oral Capsule Cephalexin 500 MG 10/24/2020 12:00:0 0 AM EDT 1.0 {capsule} active Cephalexin 500 MG eCW1 ([facility]) Cephalexin 500 MG Oral Capsule Cephalexin 500 MG 10/24/2020 12:00:0 0 AM EDT 1.0 {capsule} suspended Cephalexin 500 M G eCW1 ([facility]) Cephalexin 500 MG Oral Capsule Cephalexin 500 MG 10/24/2020 12:00:0 0 AM EDT 1.0 {capsule} suspended Cephalexin 500 M G eCW1 ([facility]) Cephalexin 500 MG Oral Capsule Cephalexin 500 MG 10/24/2020 12:00:0 0 AM EDT 1.0 {capsule} suspended Cephalexin 500 M G eCW1 ([facility]) Cephalexin 500 MG Oral Capsule Cephalexin 500 MG 10/24/2020 12:00:0 0 AM EDT 1.0 {capsule} suspended Cephalexin 500 M G eCW1 ([facility]) Cephalexin 500 MG Oral Capsule Cephalexin 500 MG 10/24/2020 12:00:0 0 AM EDT 1.0 {capsule} suspended Cephalexin 500 M G eCW1 ([facility]) Cephalexin 500 MG Oral Capsule Cephalexin 500 MG 10/24/2020 12:00:0 0 AM EDT 1.0 {capsule} suspended Cephalexin 500 M G eCW1 ([facility]) Cephalexin 500 MG Oral Capsule Cephalexin 500 MG 10/24/2020 12:00:0 0 AM EDT 1.0 {capsule} suspended Cephalexin 500 M G eCW1 ([facility]) Cephalexin 500 MG Oral Capsule Cephalexin 500 MG 10/24/2020 12:00:0 0 AM EDT 1.0 {capsule} active Cephalexin 500 MG eCW1 ([facility]) Cephalexin 500 MG Oral Capsule Cephalexin 500 MG 10/24/2020 12:00:0 0 AM EDT 1.0 {capsule} suspended Cephalexin 500 M G eCW1 ([facility]) Cephalexin 500 MG Oral Capsule Cephalexin 500 MG 10/24/2020 12:00:0 0 AM EDT 1.0 {capsule} suspended Cephalexin 500 M G eCW1 ([facility]) Cephalexin 500 MG Oral Capsule Cephalexin 500 MG 10/24/2020 12:00:0 0 AM EDT 1.0 {capsule} suspended Cephalexin 500 M G eCW1 ([facility]) Cephalexin 500 MG Oral Capsule Cephalexin 500 MG 10/24/2020 12:00:0 0 AM EDT 1.0 {capsule} suspended Cephalexin 500 M G eCW1 ([facility]) Insurance Providers Payer name Policy type / Coverage type Policy ID Covered libertarian ID Covered libertarian's relationship to mehta Policy Mehta Plan Information [facility] [id number] [facility] [id number] [facility] [id number] [facility] O [id number] P [id number] [facility] [id number] [facility] [id number] [facility] [id number] [facility] [id number] [facility] [id number] Problems, Conditions, and Diagnoses Code Display Name Description Problem Type Effective Dates Data Source(s) F41.8 [id number] Depression with anxiety Problem 11/21/2020 1 2:00:00 AM EDT eCW1 ([facility]) Z34.80 care Supervision of other normal Theo dejuan 06/29/2020 12:00:00 AM EDT eCW1 ([facility]) Surgeries/Procedures Procedure Description Date Indications Data Source(s) NONSTRESS TEST 12/05/2020 12:00:00 AM EDT eCW1 ([facility]) Results ID Date Data Source [id number] 02/05/2021 01:58:00 PM EDT [facility] Name Value Range Interpretation Code Description Data Kavya rce(s) Supporting Document(s) SARS coronavirus 2 RNA [Presence] in Res piratory specimen by VIANEY with probe detection NEGATIVE [facility] This lab was ordered by [facility] a nd reported by [facility]. ID Date Data Source [id number] 11/26/2020 12:00:00 AM EDT eCW1 ([facility]) Name Value Range Interpretation Code Description Data Kavya rce(s) Supporting Document(s) HIV 1&2 ANTIBODY SCREEN eCW1 ( [facility]) ID Date Data Source SYPHILIS ANTIBODY (RPR SCREEN) 11/26/2020 12:00:00 AM EDT eC W1 ([facility]) Name Value Range Interpretation Code Description Data Kavya rce(s) Supporting Document(s) NONREACTIVE NONREACTIVE SYPHILIS eCW1 ([facility]) ID Date Data Source Glucose Challenge Test 1 Hour 11/26/2020 12:00:00 AM EDT eCW 1 ([facility]) Name Value Range Interpretation Code Description Data Kavya rce(s) Supporting Document(s) 93 LESS THAN 140 GLUCOSE CHALLENGE TEST 1 HOUR eCW1 ([facility]) ID Date Data Source HEPATITIS C ANTIBODY INDEX 11/26/2020 12:00:00 AM EDT eCW1 ( [facility]) Name Value Range Interpretation Code Description Data Kavya rce(s) Supporting Document(s) 0.1 <0.8 HEPATITIS C VIRUS LIZZY INDEX eC W1 ([facility]) ID Date Data Source CBC - Complete Blood Count 11/26/2020 12:00:00 AM EDT eCW1 ( [facility]) Name Value Range Interpretation Code Description Data Kavya rce(s) Supporting Document(s) 3.79 4.00-5.40 RED BLOOD COUNT eCW1 ([facility]) 12.1 12.0-15.5 HEMOGLOBIN eCW1 ([facility]) 11.1 4.0-10.0 WHITE BLOOD COUNT eCW1 ([facility]) 95.0 80.0-96.0 MEAN CORPUSCULAR VOLUME e CW1 ([facility]) 31.9 27.0-33.0 MEAN CORPUSCULAR HEMOGLOB IN eCW1 ([facility]) 36.0 36.0-47.0 HEMATOCRIT eCW1 ([facility]) 318 150-450 PLATELET COUNT, AUTOMATED eCW1 ([facility]) 12.9 11.5-14.5 RED CELL DISTRIBUTION WID TH eCW1 ([facility]) 33.6 32.0-36.5 MEAN CORPUSCULAR HGB CONC eCW1 ([facility]) ID Date Data Source Type and Screen (D Rh Antibody Screen) 11/26/2020 12:00:00 A M EDT eCW1 ([facility]) Name Value Range Interpretation Code Description Data Kavya rce(s) Supporting Document(s) A POSITIVE BLOOD TYPE eCW1 ([facility]) NEGATIVE AB SCREEN (INDIRECT COOMB S)VIS eCW1 ([facility]) ID Date Data Source URINE CULTURE 11/22/2020 12:00:00 AM EDT eCW1 ([facility]) Name Value Range Interpretation Code Description Data Kavya rce(s) Supporting Document(s) URINE CULTURE eCW1 ([facility]) ID Date Data Source [id number] 07/12/2020 12:00:00 AM EDT [facility] Name Value Range Interpretation Code Description Data Kavya rce(s) Supporting Document(s) SARS-CoV2 Rapid Antigen Negative [facility] This lab was reported by [facility]. ID Date Data Source HBSAG 06/29/2020 12:00:00 AM EDT eCW1 ([facility]) Name Value Range Interpretation Code Description Data Kavya rce(s) Supporting Document(s) NEGATIVE NEGATIVE eCW1 ([facility]) ID Date Data Source RUBELLA IMMUNE STATUS IgG 06/29/2020 12:00:00 AM EDT eCW1 ([facility]) Name Value Range Interpretation Code Description Data Kavya rce(s) Supporting Document(s) IMMUNE IMMUNE eCW1 ([facility]) Procedure Social History Code Duration Value Status Description Data Source(s ) Smoking 02/04/2021 12:00:00 AM EDT Never Smoker completed Never S moker eCW1 ([facility]) Smoking 02/04/2021 12:00:00 AM EDT Never Smoker completed Never S moker eCW1 ([facility]) Smoking 02/04/2021 12:00:00 AM EDT Never Smoker completed Never S moker eCW1 ([facility]) Smoking 02/04/2021 12:00:00 AM EDT Never Smoker completed Never S moker eCW1 ([facility]) Smoking 02/04/2021 12:00:00 AM EDT Never Smoker completed Never S moker eCW1 ([facility]) Smoking 02/04/2021 12:00:00 AM EDT Never Smoker completed Never S moker eCW1 ([facility]) Smoking 12/31/2020 12:00:00 AM EDT Never Smoker completed Never S moker eCW1 ([facility]) Smoking 12/31/2020 12:00:00 AM EDT Never Smoker completed Never S moker eCW1 ([facility]) Smoking 12/05/2020 12:00:00 AM EDT Never Smoker completed Never S moker eCW1 ([facility]) Smoking 12/05/2020 12:00:00 AM EDT Never Smoker completed Never S moker eCW1 ([facility]) Smoking 12/05/2020 12:00:00 AM EDT Never Smoker completed Never S moker eCW1 ([facility]) Smoking 08/23/2020 12:00:00 AM EDT Never Smoker completed Never S moker eCW1 ([facility]) Smoking 08/23/2020 12:00:00 AM EDT Never Smoker completed Never S moker eCW1 ([facility]) Smoking 07/27/2020 12:00:00 AM EDT Never Smoker completed Never S moker eCW1 ([facility]) Smoking 06/29/2020 12:00:00 AM EDT Never Smoker completed Never S moker eCW1 ([facility]) Vital Signs ID Date Data Source UNK Name Value Range Interpretation Code Description Data Source(s) Body weight 157 [lb_av] 157 [lb_av] eCW1 ([facility]) Body height 66 [in_i] 66 [in_i] eCW1 ([facility]) Body mass index (BMI) [Ratio] 25.34 kg/m2 25.34 kg/m2 eCW1 ([facility]) Systolic blood pressure 102 mm[Hg] 102 mm[Hg] e CW1 ([facility]) Diastolic blood pressure 62 mm[Hg] 62 mm[Hg] eCW1 ([facility]) Body weight 155 [lb_av] 155 [lb_av] eCW1 ([facility]) Body height 66 [in_i] 66 [in_i] eCW1 ([facility]) Body mass index (BMI) [Ratio] 25.018 kg/m2 25.0 18 kg/m2 eCW1 ([facility]) Systolic blood pressure 122 mm[Hg] 122 mm[Hg] e CW1 ([facility]) Diastolic blood pressure 68 mm[Hg] 68 mm[Hg] eCW1 ([facility]) Body weight 152 [lb_av] 152 [lb_av] eCW1 ([facility]) Body height 66 [in_i] 66 [in_i] eCW1 ([facility]) Body mass index (BMI) [Ratio] 24.533 kg/m2 24.5 33 kg/m2 eCW1 ([facility]) Systolic blood pressure 100 mm[Hg] 100 mm[Hg] e CW1 ([facility]) Diastolic blood pressure 58 mm[Hg] 58 mm[Hg] eCW1 ([facility]) Body weight 150 [lb_av] 150 [lb_av] eCW1 ([facility]) Body weight 68.04 kg 68.04 kg eCW1 ([facility]) Body height 66 [in_i] 66 [in_i] eCW1 ([facility]) Body mass index (BMI) [Ratio] 24.211 kg/m2 24.2 11 kg/m2 eCW1 ([facility]) Systolic blood pressure 98 mm[Hg] 98 mm[Hg] e CW1 ([facility]) Diastolic blood pressure 60 mm[Hg] 60 mm[Hg] eCW1 ([facility]) Body weight 148.0 [lb_av] 148.0 [lb_av] eCW1 ([facility]) Body weight 67.13 kg 67.13 kg eCW1 ([facility]) Body height 66 [in_i] 66 [in_i] eCW1 ([facility]) Body mass index (BMI) [Ratio] 23.888 kg/m2 23.8 88 kg/m2 eCW1 ([facility]) Systolic blood pressure 100 mm[Hg] 100 mm[Hg] e CW1 ([facility]) Diastolic blood pressure 60 mm[Hg] 60 mm[Hg] eCW1 ([facility]) Body weight 149 [lb_av] 149 [lb_av] eCW1 ([facility]) Systolic blood pressure 106 mm[Hg] 106 mm[Hg] e CW1 ([facility]) Body weight 67.59 kg 67.59 kg eCW1 ([facility]) Body height 66 [in_i] 66 [in_i] eCW1 ([facility]) Body mass index (BMI) [Ratio] 24.049 kg/m2 24.0 49 kg/m2 eCW1 ([facility]) Diastolic blood pressure 60 mm[Hg] 60 mm[Hg] eCW1 ([facility]) Body weight 162 [lb_av] 162 [lb_av] eCW1 ([facility]) Body height 66 [in_i] 66 [in_i] eCW1 ([facility]) Body mass index (BMI) [Ratio] 26.147 kg/m2 26.1 47 kg/m2 eCW1 ([facility]) Systolic blood pressure 108 mm[Hg] 108 mm[Hg] e CW1 ([facility]) Diastolic blood pressure 62 mm[Hg] 62 mm[Hg] eCW1 ([facility]) Body weight 160.8 [lb_av] 160.8 [lb_av] eCW1 ([facility]) Body height 66 [in_i] 66 [in_i] eCW1 ([facility]) Body mass index (BMI) [Ratio] 25.954 kg/m2 25.9 54 kg/m2 eCW1 ([facility]) Systolic blood pressure 110 mm[Hg] 110 mm[Hg] e CW1 ([facility]) Diastolic blood pressure 68 mm[Hg] 68 mm[Hg] eCW1 ([facility]) Patient Treatment Plan of Care Planned Activity Planned Date Details Description Data Source (s) valacyclovir 1000 MG Oral Tablet [Valtrex] 03/06/2021 12:00:[address] eCW1 ([facility]) Cephalexin 500 MG Oral Capsule 02/25/2021 12:00:00 AM EST eCW1 ([facility]) Cephalexin 500 MG Oral Capsule 02/25/2021 12:00:00 AM EST eCW1 ([facility]) Cephalexin 500 MG Oral Capsule 02/25/2021 12:00:00 AM EST eCW1 ([facility]) Cephalexin 500 MG Oral Capsule 02/25/2021 12:00:00 AM EST eCW1 ([facility]) valacyclovir 500 MG Oral Tablet [Valtrex] 12/31/2020 12:00:00 AM ED T eCW1 ([facility]) valacyclovir 500 MG Oral Tablet [Valtrex] 12/31/2020 12:00:00 AM ED T eCW1 ([facility]) Cephalexin 500 MG Oral Capsule 10/24/2020 12:00:00 AM EDT eCW1 ([facility]) Cephalexin 500 MG Oral Capsule 10/24/2020 12:00:00 AM EDT eCW1 ([facility])
== END 2021-03-16 17:49 | disposition home or self-care (01) ==
LOC: M ED 15:01
DX: U07.1 COVID-19 (principal)

== ENCOUNTER → 2021-03-27 | Outpatient (REF) | payer OTHER ==
[2021-03-27 20:29] LABS: GC DNA AMPLIFICATION NEGATIVE (NEGATIVE)
== END ==
LOC: M SFHCWAGY 17:12
PROVIDERS: ATTEND Obstetrics & Gynecology
DX: Z11.3 Encounter for screening for infections with a predominantly sexual mode of transmission (principal)
CPT/HCPCS: 87661; G0463

== ENCOUNTER → 2021-03-27 | Outpatient (REF) | LOC: M LABSMTC 09:33 | PROVIDERS: ATTEND Pediatrics | DX: Z20.822 Contact with and (suspected) exposure to COVID-19 (principal) ==

== ENCOUNTER → 2021-07-10 | Outpatient (CLI) | payer OTHER | LOC: M PLALAB 08:22 | PROVIDERS: ATTEND Obstetrics & Gynecology | DX: N92.6 Irregular menstruation, unspecified (principal) ==